=== PATIENT | female | born 1990 | race Two or more races ===

== ENCOUNTER 2016-08-04 16:04 | Inpatient (IN) | payer OTHER ==
[~2016-08-04] VITALS: Ht 170.2 cm; Wt 49.9 kg
[~2016-08-04 16:04] MED LIST: NKM
[2016-08-04 16:05] VITALS: BP 104/67
[2016-08-04 18:06] VITALS: BP 106/71
[2016-08-04 21:04] LABS: BASOPHILS % (AUTO) 2.1 % (0.0-2.0); LYMPHOCYTES % (AUTO) 47.1 % (20.0-45.0); MEAN CORPUSCULAR HEMOGLOBIN 30.7 PG (27.0-31.0); MEAN CORPUSCULAR HGB CONC 31.5 G/DL (32.0-36.0); MEAN CORPUSCULAR VOLUME 97 FL (80-99); MEAN PLATELET VOLUME 5.6 FL (6.5-10.1); MONOCYTES % (AUTO) 6.1 % (1.0-10.0); NEUTROPHILS % (AUTO) 44.7 % (45.0-75.0); PLATELET COUNT 365 K/UL (150-450); RED BLOOD COUNT 4.28 M/UL (4.20-5.40); RED CELL DISTRIBUTION WIDTH 15.3 % (11.6-14.8); WHITE BLOOD COUNT 6.8 K/UL (4.8-10.8)
[2016-08-04 21:34] LABS: ALANINE AMINOTRANSFERASE 48 U/L (3-33); ALBUMIN/GLOBULIN RATIO 1.8 (1.0-2.7); ANION GAP 27 (5-15); ASPARTATE AMINO TRANSFERASE 76 U/L (5-40); CALCIUM 8.2 mg/dL (8.6-10.2); CARBON DIOXIDE 16 mEQ/L (20-30); CHLORIDE 98 mEQ/L (98-107); CREATININE 0.7 mg/dL (0.5-0.9); GLOMERULAR FILTRATION RATE > 60 mL/min (>60); HEMOLYSIS 43; POTASSIUM 5.4 mEQ/L (3.4-4.9); SODIUM 141 mEQ/L (135-145)
[2016-08-04 22:01] VITALS: BP 112/71
--- NOTE | 2016-08-04 23:29 | History and Physical ---
History of Present Illness General Date patient seen: Aug 04, 2016 Reason for Hospitalization: Alcohol Intoxication Present Illness HPI 26 yo F w/ Hx ETOH abuse and dependence. Presented to ED w/ severe ETOH intoxication. Pt alert, however non cooperative w/ questioning. Found to have BAL level of 400, anion gap acidosis and elevated LFTs. Pt was recently discharged from [facility] detox facility in [place]. Allergies: Coded Allergies: NO ALLERGY INFORMATION AVAILABLE (Verified Allergy, Unknown, 05/15/16) Medication History Scheduled No Known Medications* (NKM - No Known Medications*), 0 ., (Reported) Patient History Limited by: other - intoxication, poorly cooperative Healthcare decision maker Resuscitation status Advanced Directive on File Review of Systems All Other Systems: negative except mentioned in HPI - unable to obtain due to level of intoxication Physical Exam Physical Exam Narrative General Appearance: Alert, CIWA (2), No Apparent Distress Neuro: Cranial Nerves 3-12 NL, Grossly Non-Focal, Motor and Sensory Intact, Normal Gait, Normal Speech, Normal Tone HEENT: Atraumatic, EOMI, PERRLA, Symmetrical Neck: Full Range of Motion, Supple, No: Enlarged Thyroid, JVD, Lymphadenopathy, Tenderness Cardiovascular: Normal S1, Normal S2, Regular Rate, Regular Rhythm, No: Gallops, Murmurs, Rubs Lungs: Clear Bilaterally, Normal Air Movement, Respiratory Effort (Non-Labored) , No: Rhonchi, Wheezing Abdomen: Bowel Sounds Present, Soft, No: Distended, Masses, Organomegaly, Tenderness Extremities: Capillary Refill Exam (< 3 seconds (WNL)), Normal Pulses, No: Clubbing, Cyanosis, Edema Skin: Dry, Intact, No: Cyanosis, Jaundiced, Rashes Lymph: No: Lymphadenopathy, Lymphedema Psych/Mental Status: Mental Status NL Last 24 Hour Vital Signs Date Time Temp Pulse Resp B/P Pulse Ox O2 Delivery O2 Flow Rate FiO2 08/04/16 22:01 97.2 86 20 112/71 100 Room Air 08/04/16 18:06 97.2 99 20 106/71 97 Room Air 08/04/16 16:05 98.1 83 20 104/67 97 Room Air 08/04/16 15:56 87 20 104/67 97 Room Air Laboratory Tests Test 08/04/16 20:50 White Blood Count 6.8 K/UL (4.8-10.8) Red Blood Count 4.28 M/UL (4.20-5.40) Hemoglobin 13.1 G/DL (12.0-16.0) Hematocrit 41.7 % (37.0-47.0) Mean Corpuscular Volume 97 FL (80-99) Mean Corpuscular Hemoglobin 30.7 PG (27.0-31.0) Mean Corpuscular Hemoglobin Concent 31.5 G/DL (32.0-36.0) L Red Cell Distribution Width 15.3 % (11.6-14.8) H Platelet Count 365 K/UL (150-450) Mean Platelet Volume 5.6 FL (6.5-10.1) L Neutrophils (%) (Auto) 44.7 % (45.0-75.0) L Lymphocytes (%) (Auto) 47.1 % (20.0-45.0) H Monocytes (%) (Auto) 6.1 % (1.0-10.0) Eosinophils (%) (Auto) 0.0 % (0.0-3.0) Basophils (%) (Auto) 2.1 % (0.0-2.0) H Sodium Level 141 mEQ/L (135-145) Potassium Level 5.4 mEQ/L (3.4-4.9) H Chloride Level 98 mEQ/L (98-107) Carbon Dioxide Level 16 mEQ/L (20-30) L Anion Gap 27 (5-15) H Blood Urea Nitrogen 13 mg/dL (7-23) Creatinine 0.7 mg/dL (0.5-0.9) Estimat Glomerular Filtration Rate > 60 mL/min (>60) Glucose Level 73 mg/dL (74-106) L Calcium Level 8.2 mg/dL (8.6-10.2) L Total Bilirubin 0.3 mg/dL (0.0-1.2) Aspartate Amino Transf (AST/SGOT) 76 U/L (5-40) H Alanine Aminotransferase (ALT/SGPT) 48 U/L (3-33) H Alkaline Phosphatase 77 U/L (35-104) Total Protein 7.0 g/dL (6.6-8.7) Albumin 4.5 g/dL (3.5-5.2) Globulin 2.5 g/dL Albumin/Globulin Ratio 1.8 (1.0-2.7) Serum Alcohol 428 mg/dL Height (Feet): 5 Height (Inches): 7.00 Weight (Pounds): 110 Assessment/Plan Status: stable Assessment/Plan # Alcohol use disorder/ alcohol dependence with acute intoxication (F10.229) # Alcoholic ketoacidosis # Alcoholic hepatitis # Hyperkalemia, due to alcoholic ketoacidosis - admit to in pt - close observation - thiamine 100mg IV - banana bag - IVF w/ D5 1/2 NS - CIWA protocol - seizure precautions - evaluation for detox/rehab time of note dose not reflect time of clinical encounter Markos Baker MD Aug 04, 2016 23:29
[2016-08-05 01:51] VITALS: BP 105/80
[2016-08-05] MEDS ORDERED: LORazepam 1mg tab ORAL PRN (02:45)
[2016-08-05] MEDS ORDERED: LORazepam Inj 2mg/ml 1ml IV PRN (02:45)
[2016-08-05] MEDS ORDERED: Thiamine HCl 100 MG, Folic Acid 1 MG, Magnesium Sulfate 2,000 MG, Multivitamin - 12 Inj... IV SCH ×10 (02:45→09:00)
[2016-08-05] MEDS: D5 1/2NS 1,000 ML IV SCH ×2 (06:44→14:00)
[2016-08-05 08:29] VITALS: BP 111/56
[2016-08-05 10:00] LABS: BASOPHILS % (AUTO) 1.4 % (0.0-2.0); EOSINOPHILS % (AUTO) 0.2 % (0.0-3.0); LYMPHOCYTES % (AUTO) 26.4 % (20.0-45.0); MEAN CORPUSCULAR HEMOGLOBIN 31.3 PG (27.0-31.0); MEAN CORPUSCULAR HGB CONC 33.7 G/DL (32.0-36.0); MEAN CORPUSCULAR VOLUME 93 FL (80-99); MEAN PLATELET VOLUME 5.9 FL (6.5-10.1); MONOCYTES % (AUTO) 12.9 % (1.0-10.0); NEUTROPHILS % (AUTO) 59.2 % (45.0-75.0); PLATELET COUNT 372 K/UL (150-450); RED CELL DISTRIBUTION WIDTH 14.6 % (11.6-14.8); WHITE BLOOD COUNT 9.5 K/UL (4.8-10.8)
[2016-08-05 10:40] LABS: ALANINE AMINOTRANSFERASE 42 U/L (3-33); ALBUMIN/GLOBULIN RATIO 1.7 (1.0-2.7); ANION GAP 15 (5-15); ASPARTATE AMINO TRANSFERASE 61 U/L (5-40); CALCIUM 8.7 mg/dL (8.6-10.2); CARBON DIOXIDE 26 mEQ/L (20-30); CHLORIDE 92 mEQ/L (98-107); CREATININE 0.6 mg/dL (0.5-0.9); GLOMERULAR FILTRATION RATE > 60 mL/min (>60); HEMOLYSIS 7; MAGNESIUM 1.4 mg/dL (1.7-2.5); SODIUM 133 mEQ/L (135-145); TOTAL PROTEIN 6.7 g/dL (6.6-8.7)
[2016-08-05] MEDS: Folic Acid 1 MG, Magnesium Sulfate 2,000 MG, Multivitamin - 12 Injection 10 ML in NS w/... IV SCH (11:13)
[2016-08-05] MEDS: THIAMINE IVPB SCH (11:29)
[2016-08-05] MEDS: D5W IVPB SCH (11:29)
[2016-08-05 12:28] VITALS: BP 118/81
[2016-08-05] MEDS ORDERED: D5 1/2NS 1,000 ML IV SCH (13:00)
[2016-08-05 13:54] VITALS: BP 110/62
[2016-08-05] MEDS: chlordiazePOXIDE 25mg Cap ORAL SCH ×2 (14:02→21:48)
[2016-08-05 16:14] VITALS: BP 113/73
[2016-08-05] MEDS ORDERED: D5 1/2NS 1000ml IV ONE (18:32)
--- NOTE | 2016-08-05 20:08 | General Progress Note ---
Assessment/Plan Problem List: (1) Metabolic acidemia ICD Codes: E87.2 - Acidosis SNOMED: 71421073 (2) Hypomagnesemia ICD Codes: E83.42 - Hypomagnesemia SNOMED: 573639832 (3) Alcoholic liver disease ICD Codes: K70.9 - Alcoholic liver disease, unspecified SNOMED: 60486789 (4) Alcohol withdrawal ICD Codes: F10.239 - Alcohol dependence with withdrawal, unspecified SNOMED: 969053852 (5) Alcohol abuse ICD Codes: F10.10 - Alcohol abuse, uncomplicated SNOMED: 75222753, 26071890 (6) Acute alcoholic intoxication ICD Codes: F10.129 - Alcohol abuse with intoxication, unspecified SNOMED: 35148419 (7) Altered mental status ICD Codes: R41.82 - Altered mental status, unspecified SNOMED: 834453955 (8) ETOH abuse ICD Codes: F10.10 - Alcohol abuse, uncomplicated SNOMED: 49476577, 01354461 Status: stable Assessment/Plan # Alcohol use disorder/ alcohol dependence with acute intoxication (F10.229) # Alcoholic ketoacidosis # Alcoholic hepatitis # Hyperkalemia, due to alcoholic ketoacidosis - admit to in pt - close observation - thiamine 100mg IV -MVI, folate - banana bag - IVF w/ D5 1/2 NS - CIWA protocol - seizure precautions - evaluation for detox/rehab start Librium -Zofran, Compazine prn n/v Subjective Date patient seen: Aug 05, 2016 Time patient seen: 20:07 Allergies: Coded Allergies: No Known Allergies (Unverified , 08/05/16) Per Patient NKA Subjective pt with n/v Objective Last 24 Hour Vital Signs Date Time Temp Pulse Resp B/P Pulse Ox O2 Delivery O2 Flow Rate FiO2 08/05/16 16:14 99.0 78 18 113/73 96 Room Air 08/05/16 13:54 98.1 84 18 110/62 95 Room Air 08/05/16 12:28 98.1 94 18 118/81 97 Room Air 08/05/16 08:29 98.2 109 18 111/56 97 Room Air 08/05/16 01:51 97.5 99 18 105/80 97 Room Air 08/05/16 01:00 78 16 128/78 100 Room Air 08/04/16 22:01 97.2 86 20 112/71 100 Room Air Intake and Output 08/04/16 08/05/16 19:00 07:00 Intake Total 375 ml Balance 375 ml Intake Oral 375 ml # Voids 1 1 Laboratory Tests 08/04/16 20:50: White Blood Count 6.8, Red Blood Count 4.28, Hemoglobin 13.1, Hematocrit 41.7, Mean Corpuscular Volume 97, Mean Corpuscular Hemoglobin 30.7, Mean Corpuscular Hemoglobin Concent 31.5L, Red Cell Distribution Width 15.3H, Platelet Count 365 , Mean Platelet Volume 5.6L, Neutrophils (%) (Auto) 44.7L, Lymphocytes (%) (Auto ) 47.1H, Monocytes (%) (Auto) 6.1, Eosinophils (%) (Auto) 0.0, Basophils (%) ( Auto) 2.1H, Sodium Level 141, Potassium Level 5.4H, Chloride Level 98, Carbon Dioxide Level 16L, Anion Gap 27H, Blood Urea Nitrogen 13, Creatinine 0.7, Estimat Glomerular Filtration Rate > 60, Glucose Level 73L, Calcium Level 8.2L, Total Bilirubin 0.3, Aspartate Amino Transf (AST/SGOT) 76H, Alanine Aminotransferase (ALT/SGPT) 48H, Alkaline Phosphatase 77, Total Protein 7.0, Albumin 4.5, Globulin 2.5, Albumin/Globulin Ratio 1.8, Serum Alcohol 428 08/05/16 09:40: White Blood Count 9.5, Red Blood Count 4.00L, Hemoglobin 12.5, Hematocrit 37.1, Mean Corpuscular Volume 93, Mean Corpuscular Hemoglobin 31.3H, Mean Corpuscular Hemoglobin Concent 33.7, Red Cell Distribution Width 14.6, Platelet Count 372, Mean Platelet Volume 5.9L, Neutrophils (%) (Auto) 59.2, Lymphocytes (%) (Auto) 26.4, Monocytes (%) (Auto) 12.9H, Eosinophils (%) (Auto) 0.2, Basophils (%) ( Auto) 1.4, Sodium Level 133L, Potassium Level 4.0, Chloride Level 92L, Carbon Dioxide Level 26, Anion Gap 15, Blood Urea Nitrogen 9, Creatinine 0.6, Estimat Glomerular Filtration Rate > 60, Glucose Level 125H, Calcium Level 8.7, Total Bilirubin 0.9, Aspartate Amino Transf (AST/SGOT) 61H, Alanine Aminotransferase ( ALT/SGPT) 42H, Alkaline Phosphatase 73, Total Protein 6.7, Albumin 4.3, Globulin 2.4, Albumin/Globulin Ratio 1.7, Magnesium Level 1.4L 08/05/16 14:10: Urine HCG, Qualitative Negative, Urine Opiates Screen Negative, Urine Barbiturates Screen Negative, Phencyclidine (PCP) Screen Negative, Urine Amphetamines Screen Negative, Urine Benzodiazepines Screen Negative, Urine Cocaine Screen Negative, Urine Marijuana (THC) Screen Negative Height (Feet): 5 Height (Inches): 7.00 Weight (Pounds): 110 Objective General Appearance: Alert, CIWA (2), No Apparent Distress Neuro: Cranial Nerves 3-12 NL, Grossly Non-Focal, Motor and Sensory Intact, Normal Gait, Normal Speech, Normal Tone HEENT: Atraumatic, EOMI, PERRLA, Symmetrical Neck: Full Range of Motion, Supple, No: Enlarged Thyroid, JVD, Lymphadenopathy, Tenderness Cardiovascular: Normal S1, Normal S2, Regular Rate, Regular Rhythm, No: Gallops, Murmurs, Rubs Lungs: Clear Bilaterally, Normal Air Movement, Respiratory Effort (Non-Labored) , No: Rhonchi, Wheezing Abdomen: Bowel Sounds Present, Soft, No: Distended, Masses, Organomegaly, Tenderness Extremities: Capillary Refill Exam (< 3 seconds (WNL)), Normal Pulses, No: Clubbing, Cyanosis, Edema Skin: Dry, Intact, No: Cyanosis, Jaundiced, Rashes Lymph: No: Lymphadenopathy, Lymphedema Psych/Mental Status: Mental Status NL Katiuska Coughlin M.D. Aug 05, 2016 20:08
[2016-08-05 20:41] VITALS: BP 128/86
[2016-08-05] MEDS ORDERED: TraZODone 50mg tab ORAL PRN (20:45)
[2016-08-05] MEDS: TraZODone 50mg tab ORAL SCH (21:45)
[2016-08-06] VITALS: BP 104/67
[2016-08-06 04:00] VITALS: BP 104/50
[2016-08-06] MEDS: chlordiazePOXIDE 25mg Cap ORAL SCH ×2 (05:42→18:02)
[2016-08-06] MEDS: D5W IVPB SCH ×2 (09:00→12:38)
[2016-08-06] MEDS: THIAMINE IVPB SCH ×2 (09:00→12:38)
[2016-08-06] MEDS: Folic Acid 1 MG, Magnesium Sulfate 2,000 MG, Multivitamin - 12 Injection 10 ML in NS w/... IV SCH ×2 (09:00→12:37)
[2016-08-06] MEDS: D5 1/2NS 1,000 ML IV SCH ×3 (10:00→20:46)
[2016-08-06 10:15] LABS: ALANINE AMINOTRANSFERASE 30 U/L (3-33); ALBUMIN/GLOBULIN RATIO 1.5 (1.0-2.7); ANION GAP 14 (5-15); ASPARTATE AMINO TRANSFERASE 42 U/L (5-40); CARBON DIOXIDE 23 mEQ/L (20-30); CHLORIDE 100 mEQ/L (98-107); CREATININE 0.6 mg/dL (0.5-0.9); GLOMERULAR FILTRATION RATE > 60 mL/min (>60); HEMOLYSIS 8; MAGNESIUM 2.1 mg/dL (1.7-2.5); POTASSIUM 3.5 mEQ/L (3.4-4.9); SODIUM 137 mEQ/L (135-145); TOTAL PROTEIN 5.8 g/dL (6.6-8.7)
[2016-08-06 12:00] VITALS: BP 97/66
--- NOTE | 2016-08-06 15:17 | Emergency Room Report ---
History of Present Illness General Chief Complaint: Alcohol Intoxication Source: Patient Present Illness HPI The patient is a 26-year-old female brought in by ambulance with twin sister for alcohol intoxication. The paramedics state that these patients are well- known for alcohol intoxication and they're usually seen at [facility]. The patient's are said to have gone through many rehabilitation facilities and continue to leave or fail out and return to drinking heavily. The patients are here with resolution expert who states the parents were out of the country continuously send them to these different facilities for treatment. The patient is unable to provide any information at this time Allergies: Coded Allergies: No Known Allergies (Unverified , 08/05/16) Per Patient NKA Patient History Past Medical History: see triage record Pertinent Family History: none Reviewed Nursing Documentation: PMH: Agreed, PSxH: Agreed Nursing Documentation-PMH Past Medical History: No History, Except For Hx Cardiac Problems: No Hx Hypertension: No Hx Pacemaker: No Hx Asthma: No Hx COPD: No Hx Diabetes: No Hx Cancer: No Hx Gastrointestinal Problems: Yes - ETOH ABUSE Hx Dialysis: No History Of Psychiatric Problem: Yes - ETOH ABUSE Hx Neurological Problems: No Hx Cerebrovascular Accident: No Hx Seizures: No Review of Systems All Other Systems: negative except mentioned in HPI Physical Exam Vital Signs Date Time Temp Pulse Resp B/P Pulse Ox O2 Delivery O2 Flow Rate FiO2 08/04/16 15:56 87 20 104/67 97 Room Air 08/04/16 16:05 98.1 Sp02 EP Interpretation: reviewed, normal General Appearance: no apparent distress, GCS 15, lethargic Head: normocephalic, atraumatic Eyes: bilateral eye PERRL, bilateral eye normal inspection ENT: hearing grossly normal, normal pharynx, no angioedema, normal voice Neck: full range of motion, supple/symm/no masses Respiratory: chest non-tender, lungs clear, normal breath sounds, no wheezing, speaking full sentences Cardiovascular #1: regular rate, rhythm, no edema Gastrointestinal: normal bowel sounds, non tender, soft, non-distended, no guarding, no rebound Genitourinary: normal inspection, no CVA tenderness Musculoskeletal: normal inspection, back normal, non-tender Neurologic: responsive, sensory intact Psychiatric: no suicidal/homicidal ideation Skin: normal color, no rash, warm/dry, well hydrated Medical Decision Making PA Attestation Dr. Bedoya is my supervising physician. Patient management was discussed with my supervising physician Diagnostic Impression: Primary Impression: Acute alcoholic intoxication ER Course The patient is a 26-year-old female brought in by ambulance with twin sister for alcohol intoxication. DDx considered but not limited to: acute alcohol intoxication, hepatic encephalopathy, drug overdose, hypoglycemia, psychosis PE: Vitals WNL. NAD. Sleeping. head NC/AT. PERRL. Awakens to verbal and physical stimuli. RRR. Lungs CTA bilat. Abd non tender. Foul smelling CBC unremarkable. CMP shows hyperkalemia and elevated AST/ALT Blood alcohol level is markedly elevated UDS neg Pt given IV fluids. The patient becomes more responsive and alert as time goes on. The patient is given time to rest in the emergency department. The patient will be admitted for severe alcohol intoxication in stable condition Laboratory Tests Test 08/04/16 20:50 08/05/16 09:40 08/05/16 14:10 08/06/16 09:45 White Blood Count 6.8 K/UL (4.8-10.8) 9.5 K/UL (4.8-10.8) Red Blood Count 4.28 M/UL (4.20-5.40) 4.00 M/UL (4.20-5.40) L Hemoglobin 13.1 G/DL (12.0-16.0) 12.5 G/DL (12.0-16.0) Hematocrit 41.7 % (37.0-47.0) 37.1 % (37.0-47.0) Mean Corpuscular Volume 97 FL (80-99) 93 FL (80-99) Mean Corpuscular Hemoglobin 30.7 PG (27.0-31.0) 31.3 PG (27.0-31.0) H Mean Corpuscular Hemoglobin Concent 31.5 G/DL (32.0-36.0) L 33.7 G/DL (32.0-36.0) Red Cell Distribution Width 15.3 % (11.6-14.8) H 14.6 % (11.6-14.8) Platelet Count 365 K/UL (150-450) 372 K/UL (150-450) Mean Platelet Volume 5.6 FL (6.5-10.1) L 5.9 FL (6.5-10.1) L Neutrophils (%) (Auto) 44.7 % (45.0-75.0) L 59.2 % (45.0-75.0) Lymphocytes (%) (Auto) 47.1 % (20.0-45.0) H 26.4 % (20.0-45.0) Monocytes (%) (Auto) 6.1 % (1.0-10.0) 12.9 % (1.0-10.0) H Eosinophils (%) (Auto) 0.0 % (0.0-3.0) 0.2 % (0.0-3.0) Basophils (%) (Auto) 2.1 % (0.0-2.0) H 1.4 % (0.0-2.0) Sodium Level 141 mEQ/L (135-145) 133 mEQ/L (135-145) L 137 mEQ/L (135-145) Potassium Level 5.4 mEQ/L (3.4-4.9) H 4.0 mEQ/L (3.4-4.9) 3.5 mEQ/L (3.4-4.9) Chloride Level 98 mEQ/L (98-107) 92 mEQ/L (98-107) L 100 mEQ/L (98-107) Carbon Dioxide Level 16 mEQ/L (20-30) L 26 mEQ/L (20-30) 23 mEQ/L (20-30) Anion Gap 27 (5-15) H 15 (5-15) 14 (5-15) Blood Urea Nitrogen 13 mg/dL (7-23) 9 mg/dL (7-23) 7 mg/dL (7-23) Creatinine 0.7 mg/dL (0.5-0.9) 0.6 mg/dL (0.5-0.9) 0.6 mg/dL (0.5-0.9) Estimate Glomerular Filtration Rate > 60 mL/min (>60) > 60 mL/min (>60) > 60 mL/min (>60) Glucose Level 73 mg/dL (74-106) L 125 mg/dL (74-106) H 121 mg/dL (74-106) H Calcium Level 8.2 mg/dL (8.6-10.2) L 8.7 mg/dL (8.6-10.2) 8.0 mg/dL (8.6-10.2) L Total Bilirubin 0.3 mg/dL (0.0-1.2) 0.9 mg/dL (0.0-1.2) 1.0 mg/dL (0.0-1.2) Aspartate Amino Transferase (AST) 76 U/L (5-40) H 61 U/L (5-40) H 42 U/L (5-40) H Alanine Aminotransferase (ALT) 48 U/L (3-33) H 42 U/L (3-33) H 30 U/L (3-33) Alkaline Phosphatase 77 U/L (35-104) 73 U/L (35-104) 61 U/L (35-104) Total Protein 7.0 g/dL (6.6-8.7) 6.7 g/dL (6.6-8.7) 5.8 g/dL (6.6-8.7) L Albumin 4.5 g/dL (3.5-5.2) 4.3 g/dL (3.5-5.2) 3.5 g/dL (3.5-5.2) Globulin 2.5 g/dL 2.4 g/dL 2.3 g/dL Albumin/Globulin Ratio 1.8 (1.0-2.7) 1.7 (1.0-2.7) 1.5 (1.0-2.7) Serum Alcohol 428 mg/dL Magnesium Level 1.4 mg/dL (1.7-2.5) L 2.1 mg/dL (1.7-2.5) Urine HCG, Qualitative Negative Urine Opiates Screen Negative (NEGATIVE) Urine Barbiturates Screen Negative (NEGATIVE) Phencyclidine (PCP) Screen Negative (NEGATIVE) Urine Amphetamines Screen Negative (NEGATIVE) Urine Benzodiazepines Screen Negative (NEGATIVE) Urine Cocaine Screen Negative (NEGATIVE) Urine Marijuana (THC) Screen Negative (NEGATIVE) Lab Results Impression CBC unremarkable. CMP shows hyperkalemia and elevated AST/ALT Blood alcohol level is markedly elevated UDS neg Last Vital Signs Date Time Temp Pulse Resp B/P Pulse Ox O2 Delivery O2 Flow Rate FiO2 08/06/16 12:00 98.2 57 20 97/66 97 Room Air Status: improved Disposition: ADMITTED INPATIENT Condition: Stable Referrals: NOT CHOSEN IPA/,REFERRING (PCP) FRANKLIN BEAN Aug 06, 2016 15:16
[2016-08-06 16:00] VITALS: BP 112/69
--- NOTE | 2016-08-06 17:58 | General Progress Note ---
Assessment/Plan Problem List: (1) Metabolic acidemia ICD Codes: E87.2 - Acidosis SNOMED: 22274938 (2) Hypomagnesemia ICD Codes: E83.42 - Hypomagnesemia SNOMED: 724682217 (3) Alcoholic liver disease ICD Codes: K70.9 - Alcoholic liver disease, unspecified SNOMED: 25823380 (4) Alcohol withdrawal ICD Codes: F10.239 - Alcohol dependence with withdrawal, unspecified SNOMED: 124097068 (5) Alcohol abuse ICD Codes: F10.10 - Alcohol abuse, uncomplicated SNOMED: 65856383, 31690260 (6) Acute alcoholic intoxication ICD Codes: F10.129 - Alcohol abuse with intoxication, unspecified SNOMED: 21380954 (7) Altered mental status ICD Codes: R41.82 - Altered mental status, unspecified SNOMED: 439661464 (8) ETOH abuse ICD Codes: F10.10 - Alcohol abuse, uncomplicated SNOMED: 61812059, 63370435 Assessment/Plan # Alcohol use disorder/ alcohol dependence with acute intoxication (F10.229) # Alcoholic ketoacidosis # Alcoholic hepatitis # Hyperkalemia, due to alcoholic ketoacidosis - admit to in pt - close observation - thiamine 100mg IV -->po -MVI, folate po - banana bag - IVF w/ D5 1/2 NS - CIWA protocol - seizure precautions - evaluation for detox/rehab start Librium, taper -Zofran, Compazine prn n/v Subjective Date patient seen: Aug 06, 2016 Time patient seen: 17:55 Allergies: Coded Allergies: No Known Allergies (Unverified , 08/05/16) Per Patient NKA Subjective no more n/v; tolerating diet Objective Last 24 Hour Vital Signs Date Time Temp Pulse Resp B/P Pulse Ox O2 Delivery O2 Flow Rate FiO2 08/06/16 16:00 96.4 89 15 112/69 98 Room Air 08/06/16 12:00 98.2 57 20 97/66 97 Room Air 08/06/16 04:00 97.5 62 16 104/50 97 Room Air 08/06/16 00:00 97.9 70 16 104/67 94 Room Air 08/05/16 20:41 98.2 72 19 128/86 97 Room Air Intake and Output 08/05/16 08/06/16 19:00 07:00 Intake Total 971 ml 760 ml Balance 971 ml 760 ml Intake Oral 120 ml 360 ml IV Total 851 ml 400 ml # Voids 2 Laboratory Tests 08/06/16 09:45: Sodium Level 137, Potassium Level 3.5, Chloride Level 100, Carbon Dioxide Level 23, Anion Gap 14, Blood Urea Nitrogen 7, Creatinine 0.6, Estimat Glomerular Filtration Rate > 60, Glucose Level 121H, Calcium Level 8.0L, Magnesium Level 2.1, Total Bilirubin 1.0, Aspartate Amino Transf (AST/SGOT) 42H, Alanine Aminotransferase (ALT/SGPT) 30, Alkaline Phosphatase 61, Total Protein 5.8L, Albumin 3.5, Globulin 2.3, Albumin/Globulin Ratio 1.5 Height (Feet): 5 Height (Inches): 7.00 Weight (Pounds): 110 Objective General Appearance: Alert, sleepy but arousable, No Apparent Distress Neuro: Cranial Nerves 3-12 NL, Grossly Non-Focal, Motor and Sensory Intact, Normal Gait, Normal Speech, Normal Tone; no tongue fasciculations or tremor or flapping asterixis HEENT: Atraumatic, EOMI, PERRLA, Symmetrical Neck: Full Range of Motion, Supple, No: Enlarged Thyroid, JVD, Lymphadenopathy, Tenderness Cardiovascular: Normal S1, Normal S2, Regular Rate, Regular Rhythm, No: Gallops, Murmurs, Rubs Lungs: Clear Bilaterally, Normal Air Movement, Respiratory Effort (Non-Labored) , No: Rhonchi, Wheezing Abdomen: Bowel Sounds Present, Soft, No: Distended, Masses, Organomegaly, Tenderness Extremities: Capillary Refill Exam (< 3 seconds (WNL)), Normal Pulses, No: Clubbing, Cyanosis, Edema Skin: Dry, Intact, No: Cyanosis, Jaundiced, Rashes Lymph: No: Lymphadenopathy, Lymphedema Psych/Mental Status: Mental Status NL Katiuska Coughlin M.D. Aug 06, 2016 17:58
[2016-08-06 20:00] VITALS: BP 116/69
[2016-08-06] MEDS: TraZODone 50mg tab ORAL SCH (20:43)
[2016-08-07] VITALS: BP 112/74
[2016-08-07 04:00] VITALS: BP 101/60
[2016-08-07] MEDS: D5 1/2NS 1,000 ML IV SCH (04:58)
[2016-08-07 08:00] VITALS: BP 117/71
[2016-08-07] MEDS: chlordiazePOXIDE 25mg Cap ORAL SCH (08:36)
[2016-08-07] MEDS ORDERED: MULTIVITAMINS1 EAC2 ORAL (11:25)
[2016-08-07] MEDS ORDERED: VITAMIN B-1100 MG ORAL (11:26)
[2016-08-07] MEDS ORDERED: FOLIC ACID1 MG ORAL (11:26)
[2016-08-07] MEDS ORDERED: LIBRIUM10 MG ORAL (11:26)
[2016-08-07] MEDS: Folic Acid 1 MG, Magnesium Sulfate 2,000 MG, Multivitamin - 12 Injection 10 ML in NS w/... IV SCH (11:40)
[2016-08-07] MEDS: D5W IVPB SCH (11:41)
[2016-08-07] MEDS: THIAMINE IVPB SCH (11:41)
--- NOTE | 2016-08-07 15:37 | Discharge Summary ---
Discharge Summary Hospital Course Date of Admission Aug 04, 2016 at 19:23 Date of Discharge 08/07/16 Admitting Diagnosis AMS, etoh intoxication HPI Mari Herrera is a 26 year old female who was admitted on Aug 04, 2016 at 19:23 for Altered Mental Status,Etoh intoxication Hospital Course - admitted to in pt for close observation - thiamine 100mg IV-->po -folate, MVI po - banana bag - IVF w/ D5 1/2 NS - CIWA protocol -started Librium taper - seizure precautions - chem, mag, LFT's - pt not interested in detox/rehab -counseled pt extensively on alcohol abstinence Discharge Medications Continued Medications: Chlordiazepoxide Hcl* (Librium*) 10 Mg Capsule 25 MG ORAL DAILY, #5 CAP 0 Refills Folic Acid* (Folic Acid*) 1 Mg Tablet 1 MG ORAL DAILY, #30 TAB Multivitamins* (Multivitamins*) 1 Each Tablet 1 TAB ORAL DAILY, #30 TAB 0 Refills No Known Medications* (NKM - No Known Medications*) . 0 ., 0 Refills Discharge Condition Upon Discharge: stable Discharge Disposition Patient was discharged to Home (01) Discharge Diagnoses: (1) Hypomagnesemia (2) Alcohol abuse (3) Alcoholic liver disease (4) Altered mental status (5) Alcohol withdrawal (6) ETOH abuse (7) Acute alcoholic intoxication (8) Metabolic acidemia Katiuska Coughlin M.D. Aug 07, 2016 15:37
== END 2016-08-07 14:08 | disposition home or self-care (01) | DRG 897 ==
LOC: EDBD 16:04 → EMR 17:37 → 4W 19:23 → EDBEDREQ 22:46 → 4W 08-05 01:00 → 3E 08-05 13:10
PROC: HZ2ZZZZ Detoxification Services for Substance Abuse Treatment (ICD-10-PCS; principal; 2016-08-05)
DX: F10.239 Alcohol dependence with withdrawal, unspecified (principal); E87.2 Acidosis; K70.10 Alcoholic hepatitis without ascites; E83.42 Hypomagnesemia; K70.9 Alcoholic liver disease, unspecified; E87.5 Hyperkalemia; F10.229 Alcohol dependence with intoxication, unspecified; Y90.8 Blood alcohol level of 240 mg/100 ml or more
CPT/HCPCS: 36415; 80053; 80300; 80329; 81025; 83735; 85025; J2405

== ENCOUNTER 2017-08-16 18:17 | Inpatient (IN) | payer OTHER ==
[~2017-08-16] VITALS: Ht 167.6 cm; Wt 49.9 kg
[~2017-08-16 18:17] MED LIST changes: +FOLIC ACID1 MG ORAL; +LIBRIUM10 MG ORAL; +MULTIVITAMINS1 EAC2 ORAL; +VITAMIN B-1100 MG ORAL
--- NOTE | 2017-08-16 19:30 | Emergency Room Report ---
History of Present Illness General Chief Complaint: Altered Level of Consciousness Source: EMS Present Illness HPI Patient present by paramedics She is here with twin sister Was also found Next 2 The patient Patient was on the side of the bed on the floor of a hotel room Patient was apparently supposed to be leaving at noon However is staff was not able to get a hold of her they went and found the patient next her sister laying on the ground paramedics report appear bottles around the room no other medications no other drug paraphernalia Patient at this time is nonverbal and is unresponsive to verbal stimuli However does respond minimally to physical stimuli Allergies: Coded Allergies: No Known Allergies (Unverified , 08/05/16) Per Patient NKA Patient History Limited by: medical condition Past Medical History: see triage record Pertinent Family History: unable to obtain Last Menstrual Period: UNK Reviewed Nursing Documentation: PMH: Agreed, PSxH: Agreed Nursing Documentation-PMH Past Medical History: Deferred Hx Cardiac Problems: No Hx Hypertension: No Hx Pacemaker: No Hx Asthma: No Hx COPD: No Hx Diabetes: No Hx Cancer: No Hx Gastrointestinal Problems: Yes - ETOH ABUSE Hx Dialysis: No Hx Neurological Problems: No Hx Cerebrovascular Accident: No Hx Seizures: No Review of Systems All Other Systems: limited - Other than the ones mentioned in the history of present illness all others are reviewed however they do stay limited due to the patient's mental status Physical Exam Vital Signs Date Time Temp Pulse Resp B/P (MAP) Pulse Ox O2 Delivery O2 Flow Rate FiO2 08/16/17 18:26 97.0 120 12 113/67 95 Non-Rebreather 15.0 Sp02 EP Interpretation: reviewed, normal General Appearance: no apparent distress Head: normocephalic, atraumatic Eyes: bilateral eye PERRL ENT: normal pharynx - With vomitus around her mouth Neck: supple Respiratory: lungs clear Cardiovascular #1: regular rate, rhythm, no edema Gastrointestinal: non tender, soft Musculoskeletal: other - Patient does not follow commands no obvious focal deficit Neurologic: responsive - to physical stimuli Psychiatric: other - nonverbal Skin: normal color, no rash Lymphatic: no adenopathy Medical Decision Making Diagnostic Impression: Primary Impression: Altered level of consciousness Additional Impression: Acute alcoholic intoxication ER Course Multiple differentials considered Including but not limited to intracranial, metabolic, infectious Patient's alcohol level is significantly elevated Patient remains altered and confused Given the requirement for prolonged observation in the ER patient will be admitted to the hospital for further inpatient care Please note that a stamping press operator did present later on Provide significant input of the patient's have significant alcohol disease have had over 40 hospital admissions Reports that recently they had gone to [place] and again began drinking heavily Labs Test 08/16/17 19:23 08/16/17 20:10 Urine HCG, Qualitative Negative Urine Opiates Screen Negative (NEGATIVE) Urine Barbiturates Screen Negative (NEGATIVE) Phencyclidine (PCP) Screen Negative (NEGATIVE) Urine Amphetamines Screen Negative (NEGATIVE) Urine Benzodiazepines Screen Negative (NEGATIVE) Urine Cocaine Screen Negative (NEGATIVE) Urine Marijuana (THC) Screen Negative (NEGATIVE) White Blood Count 9.5 K/UL (4.8-10.8) Red Blood Count 4.94 M/UL (4.20-5.40) Hemoglobin 14.5 G/DL (12.0-16.0) Hematocrit 45.6 % (37.0-47.0) Mean Corpuscular Volume 92 FL (80-99) Mean Corpuscular Hemoglobin 29.5 PG (27.0-31.0) Mean Corpuscular Hemoglobin Concent 31.9 G/DL (32.0-36.0) Red Cell Distribution Width 14.5 % (11.6-14.8) Platelet Count 362 K/UL (150-450) Mean Platelet Volume 6.1 FL (6.5-10.1) Neutrophils (%) (Auto) 58.1 % (45.0-75.0) Lymphocytes (%) (Auto) 36.2 % (20.0-45.0) Monocytes (%) (Auto) 4.4 % (1.0-10.0) Eosinophils (%) (Auto) 0.4 % (0.0-3.0) Basophils (%) (Auto) 0.9 % (0.0-2.0) Sodium Level 144 MMOL/L (136-145) Potassium Level 4.7 MMOL/L (3.5-5.1) Chloride Level 108 MMOL/L (98-107) Carbon Dioxide Level 26 MMOL/L (21-32) Anion Gap 10 mmol/L (5-15) Blood Urea Nitrogen 10 mg/dL (7-18) Creatinine 0.7 MG/DL (0.55-1.30) Estimat Glomerular Filtration Rate > 60 mL/min (>60) Glucose Level 88 MG/DL (74-106) Calcium Level 8.0 MG/DL (8.5-10.1) Total Bilirubin 0.1 MG/DL (0.2-1.0) Aspartate Amino Transf (AST/SGOT) 27 U/L (15-37) Alanine Aminotransferase (ALT/SGPT) 15 U/L (12-78) Alkaline Phosphatase 67 U/L (46-116) Total Protein 7.6 G/DL (6.4-8.2) Albumin 3.4 G/DL (3.4-5.0) Globulin 4.2 g/dL Albumin/Globulin Ratio 0.8 (1.0-2.7) Salicylates Level 1.2 ug/mL (2.8-20) Acetaminophen Level < 2 MCG/ML (10-30) Serum Alcohol 453 mg/dL Last Vital Signs Date Time Temp Pulse Resp B/P (MAP) Pulse Ox O2 Delivery O2 Flow Rate FiO2 08/16/17 18:26 97.0 120 12 113/67 95 Non-Rebreather 15.0 Status: improved Disposition: ADMITTED INPATIENT Condition: Serious ANGELO KEY D.O. Aug 16, 2017 19:30
[2017-08-16 20:42] LABS: BASOPHILS % (AUTO) 0.9 % (0.0-2.0); EOSINOPHILS % (AUTO) 0.4 % (0.0-3.0); HEMATOCRIT 45.6 % (37.0-47.0); HEMOGLOBIN 14.5 G/DL (12.0-16.0); LYMPHOCYTES % (AUTO) 36.2 % (20.0-45.0); MEAN CORPUSCULAR VOLUME 92 FL (80-99); MONOCYTES % (AUTO) 4.4 % (1.0-10.0); NEUTROPHILS % (AUTO) 58.1 % (45.0-75.0); PLATELET COUNT 362 K/UL (150-450); RED BLOOD COUNT 4.94 M/UL (4.20-5.40); RED CELL DISTRIBUTION WIDTH 14.5 % (11.6-14.8); WHITE BLOOD COUNT 9.5 K/UL (4.8-10.8)
[2017-08-16 20:48] LABS: ANION GAP 10 mmol/L (5-15); BLOOD UREA NITROGEN 10 mg/dL (7-18); CARBON DIOXIDE 26 MMOL/L (21-32); CHLORIDE 108 MMOL/L (98-107); CREATININE 0.7 MG/DL (0.55-1.30); POTASSIUM 4.7 MMOL/L (3.5-5.1); SODIUM 144 MMOL/L (136-145)
[2017-08-16 20:59] LABS: ALANINE AMINOTRANSFERASE 15 U/L (12-78); ALBUMIN 3.4 G/DL (3.4-5.0); ALBUMIN/GLOBULIN RATIO 0.8 (1.0-2.7); ALKALINE PHOSPHATASE 67 U/L (46-116); ASPARTATE AMINO TRANSFERASE 27 U/L (15-37); BILIRUBIN,TOTAL 0.1 MG/DL (0.2-1.0)
[2017-08-16 21:37] VITALS: BP 102/68
[2017-08-16] MEDS ORDERED: UNOBMED (23:42)
[2017-08-17 00:46] VITALS: BP 97/57
[2017-08-17] MEDS: D5 1/2NS 1,000 ML IV SCH ×3 (01:43→18:39)
[2017-08-17 04:41] VITALS: BP 104/76
[2017-08-17] MEDS ORDERED: Thiamine HCl 100 MG, Folic Acid 1 MG, Magnesium Sulfate 2,000 MG, Multivitamin - 12 Inj... IV SCH ×5 (07:00)
[2017-08-17 08:00] VITALS: BP 117/77
[2017-08-17] MEDS: LORazepam 1mg tab ORAL PRN ×2 (08:16→23:42)
--- NOTE | 2017-08-17 09:47 | History and Physical ---
History of Present Illness General Date patient seen: Aug 17, 2017 Time patient seen: 09:47 Reason for Hospitalization: Altered Level of Consciousness Present Illness HPI 27y/o female with pmh of alcohol abuse with dependence who presented with acute alcohol intoxication. Pt was found w/ twin sister on the floor of the hotel room. Pt was found next to her sister on the grond. Paramedics reported alcohol bottles around the room. No drugs found. On arrival to ED, pt is nonverbal and unresponsive to verbal stimuli. She did respond minimally to physical stimuli. Allergies: Coded Allergies: No Known Allergies (Unverified , 08/05/16) Per Patient NKA Medication History Scheduled Chlordiazepoxide Hcl* (Librium*), 25 MG ORAL DAILY, (Reported) Folic Acid* (Folic Acid*), 1 MG ORAL DAILY, (Reported) Multivitamins* (Multivitamins*), 1 TAB ORAL DAILY, (Reported) No Known Medications* (NKM - No Known Medications*), 0 ., (Reported) Thiamine Hcl* (Vitamin B-1*), 100 MG ORAL DAILY, (Reported) Miscellaneous Medications Unable to Obtain Medications (Unable To Obtain Meds), (Reported) Patient History History Provided By: Patient, Family Member, Medical Record Healthcare decision maker Katelyn Herrera( mother) Resuscitation status Full Code Advanced Directive on File Past Medical/Surgical History Past Medical/Surgical History: (1) Alcohol use disorder (2) Alcohol dependence Family History Family History: Patient reports no known family medical history. Social History Social History: (1) Alcohol abuse Review of Systems ROS Narrative Limited as pt with acute alcohol intoxication Physical Exam Physical Exam Narrative General: somnolent, arousable briefly to voice Head: normocephalic, without obvious abnormality, atraumatic Eyes: conjunctivae/corneas clear. PERRL, EOM's intact Throat: lips, mucosa, and tongue normal. MMM Neck: supple, symmetrical, trachea midline, and no JVD Lungs: clear to auscultation bilaterally Heart: regular rate and rhythm, S1, S2 normal, no murmur, click, rub or gallop Abdomen: soft, non-tender, non-distended, bowel sounds normal; no masses or organomegaly Extremities: extremities normal, atraumatic, no cyanosis or edema Pulses: 2+ and symmetric Skin: skin color, texture, turgor normal; no rashes or lesions Neurologic: grossly normal, no focal deficits Last 24 Hour Vital Signs Date Time Temp Pulse Resp B/P (MAP) Pulse Ox O2 Delivery O2 Flow Rate FiO2 08/17/17 08:00 98.0 94 20 117/77 99 Room Air 08/17/17 04:41 97.8 100 18 104/76 100 08/17/17 01:11 98.6 104 16 97/57 97 Room Air 15.0 08/17/17 00:46 98.6 104 16 97/57 97 Room Air 08/16/17 21:37 98.6 89 12 102/68 97 Non-Rebreather 15.0 08/16/17 18:26 97.0 120 12 113/67 95 Non-Rebreather 15.0 Intake and Output 08/16/17 08/17/17 19:00 07:00 Intake Total 720 ml Balance 720 ml Intake Oral 720 ml # Voids 1 Laboratory Tests Test 08/16/17 19:23 08/16/17 20:10 Urine HCG, Qualitative Negative Urine Opiates Screen Negative (NEGATIVE) Urine Barbiturates Screen Negative (NEGATIVE) Phencyclidine (PCP) Screen Negative (NEGATIVE) Urine Amphetamines Screen Negative (NEGATIVE) Urine Benzodiazepines Screen Negative (NEGATIVE) Urine Cocaine Screen Negative (NEGATIVE) Urine Marijuana (THC) Screen Negative (NEGATIVE) White Blood Count 9.5 K/UL (4.8-10.8) Red Blood Count 4.94 M/UL (4.20-5.40) Hemoglobin 14.5 G/DL (12.0-16.0) Hematocrit 45.6 % (37.0-47.0) Mean Corpuscular Volume 92 FL (80-99) Mean Corpuscular Hemoglobin 29.5 PG (27.0-31.0) Mean Corpuscular Hemoglobin Concent 31.9 G/DL (32.0-36.0) L Red Cell Distribution Width 14.5 % (11.6-14.8) Platelet Count 362 K/UL (150-450) Mean Platelet Volume 6.1 FL (6.5-10.1) L Neutrophils (%) (Auto) 58.1 % (45.0-75.0) Lymphocytes (%) (Auto) 36.2 % (20.0-45.0) Monocytes (%) (Auto) 4.4 % (1.0-10.0) Eosinophils (%) (Auto) 0.4 % (0.0-3.0) Basophils (%) (Auto) 0.9 % (0.0-2.0) Sodium Level 144 MMOL/L (136-145) Potassium Level 4.7 MMOL/L (3.5-5.1) Chloride Level 108 MMOL/L (98-107) H Carbon Dioxide Level 26 MMOL/L (21-32) Anion Gap 10 mmol/L (5-15) Blood Urea Nitrogen 10 mg/dL (7-18) Creatinine 0.7 MG/DL (0.55-1.30) Estimat Glomerular Filtration Rate > 60 mL/min (>60) Glucose Level 88 MG/DL (74-106) Calcium Level 8.0 MG/DL (8.5-10.1) L Total Bilirubin 0.1 MG/DL (0.2-1.0) L Aspartate Amino Transf (AST/SGOT) 27 U/L (15-37) Alanine Aminotransferase (ALT/SGPT) 15 U/L (12-78) Alkaline Phosphatase 67 U/L (46-116) Total Protein 7.6 G/DL (6.4-8.2) Albumin 3.4 G/DL (3.4-5.0) Globulin 4.2 g/dL Albumin/Globulin Ratio 0.8 (1.0-2.7) L Salicylates Level 1.2 ug/mL (2.8-20) L Acetaminophen Level < 2 MCG/ML (10-30) L Serum Alcohol 453 mg/dL Height (Feet): 5 Height (Inches): 6.00 Weight (Pounds): 110 Medications Current Medications Medications (Trade) Dose Ordered Sig/Sp Route PRN Reason Start Time Stop Time Status Last Admin Dose Admin Dextrose (Dextrose 50%) STAT PRN IV Hypoglycemia 08/17/17 01:00 09/16/17 00:59 Dextrose/Sodium Chloride 1,000 ml @ 125 mls/hr Q8H IV 08/17/17 01:56 09/16/17 01:55 08/17/17 01:43 Folic Acid 1 mg/ Magnesium Sulfate 2000 mg/ Multivitamins 10 ml/Sodium Chloride 1,014.2 ml @ 125 mls/ hr Q24H IV 08/17/17 10:00 09/16/17 09:59 Lorazepam (Ativan) 1 mg Q2H PRN ORAL For Anxiety 08/17/17 01:00 08/24/17 00:59 08/17/17 08:16 Thiamine HCl 100 mg/Dextrose 56 ml @ 112 mls/hr Q24H IVPB 08/17/17 10:00 09/16/17 09:59 Assessment/Plan Problem List: (1) Acute alcoholic intoxication ICD Codes: F10.129 - Alcohol abuse with intoxication, unspecified SNOMED: 34910211 (2) Acute encephalopathy ICD Codes: G93.40 - Encephalopathy, unspecified SNOMED: 0362260 (3) Alcohol withdrawal ICD Codes: F10.239 - Alcohol dependence with withdrawal, unspecified SNOMED: 890644541 (4) Altered level of consciousness ICD Codes: R40.4 - Transient alteration of awareness SNOMED: 0861104 (5) Alcohol use disorder ICD Codes: F10.99 - Alcohol use, unspecified with unspecified alcohol-induced disorder SNOMED: 170184, 04778641 (6) Alcohol dependence ICD Codes: F10.20 - Alcohol dependence, uncomplicated SNOMED: 16220269 Status: unchanged Assessment/Plan - Admit inpt - Monitor respiratory status closely - Monitor for withdrawal - Zofran PRN n/v - Banana bag q24h - mIVFs - CIWA protocol - Seizure precautions - SW consult for evaluation for detox/rehab DVT ppx: SCDs FULL CODE 70min spent on this case w/ >50% on care/coordination. D/w pt/family, RN, SW/CM regarding mgmt and dispo. John Seaman M.D. Aug 17, 2017 09:47
[2017-08-17] MEDS: Folic Acid 1 MG, Magnesium Sulfate 2,000 MG, Multivitamin - 12 Injection 10 ML in NS w/... IV SCH (09:51)
[2017-08-17] MEDS: Thiamine 100mg IVPB (Q24H) IVPB SCH ×2 (09:51)
[2017-08-17 12:41] VITALS: BP 127/78
[2017-08-17 16:00] VITALS: BP 119/81
[2017-08-17 20:00] VITALS: BP 117/50
[2017-08-18] VITALS: BP 126/72
[2017-08-18] MEDS: D5 1/2NS 1,000 ML IV SCH ×2 (02:00→09:56)
[2017-08-18 04:00] VITALS: BP 98/61
[2017-08-18 07:03] LABS: EOSINOPHILS % (AUTO) 2.3 % (0.0-3.0); HEMATOCRIT 36.5 % (37.0-47.0); HEMOGLOBIN 11.8 G/DL (12.0-16.0); LYMPHOCYTES % (AUTO) 29.7 % (20.0-45.0); MEAN CORPUSCULAR VOLUME 91 FL (80-99); MONOCYTES % (AUTO) 11.6 % (1.0-10.0); NEUTROPHILS % (AUTO) 55.4 % (45.0-75.0); PLATELET COUNT 300 K/UL (150-450); RED BLOOD COUNT 4.02 M/UL (4.20-5.40); RED CELL DISTRIBUTION WIDTH 13.8 % (11.6-14.8); WHITE BLOOD COUNT 7.3 K/UL (4.8-10.8)
[2017-08-18 07:28] LABS: ANION GAP 9 mmol/L (5-15); BLOOD UREA NITROGEN 13 mg/dL (7-18); CALCIUM 7.8 MG/DL (8.5-10.1); CARBON DIOXIDE 22 MMOL/L (21-32); CHLORIDE 105 MMOL/L (98-107); CREATININE 0.6 MG/DL (0.55-1.30); PHOSPHORUS 3.2 MG/DL (2.5-4.9); POTASSIUM 4.1 MMOL/L (3.5-5.1); SODIUM 136 MMOL/L (136-145)
[2017-08-18] MEDS: Folic Acid 1 MG, Magnesium Sulfate 2,000 MG, Multivitamin - 12 Injection 10 ML in NS w/... IV SCH (08:59)
[2017-08-18] MEDS: Thiamine 100mg IVPB (Q24H) IVPB SCH ×2 (10:14)
[2017-08-18] MEDS: LORazepam 1mg tab ORAL PRN (10:17)
--- NOTE | 2017-08-18 11:05 | General Progress Note ---
Assessment/Plan Problem List: (1) Acute alcoholic intoxication ICD Codes: F10.129 - Alcohol abuse with intoxication, unspecified SNOMED: 83168181 (2) Acute encephalopathy ICD Codes: G93.40 - Encephalopathy, unspecified SNOMED: 1519615 (3) Alcohol withdrawal ICD Codes: F10.239 - Alcohol dependence with withdrawal, unspecified SNOMED: 058916670 (4) Altered level of consciousness ICD Codes: R40.4 - Transient alteration of awareness SNOMED: 5542645 (5) Alcohol use disorder ICD Codes: F10.99 - Alcohol use, unspecified with unspecified alcohol-induced disorder SNOMED: 038753, 22081964 (6) Alcohol dependence ICD Codes: F10.20 - Alcohol dependence, uncomplicated SNOMED: 83094221 Status: stable Assessment/Plan - Monitor respiratory status closely - Monitor for withdrawal - Zofran PRN n/v - Banana bag q24h - mIVFs, rate decreased as pt now tolerating PO intake - CIWA protocol - Seizure precautions - SW consult for evaluation for detox/rehab. LIkely d/c tomorrow with pt's friend João who will take pt to sober living facility DVT ppx: SCDs FULL CODE A total of 32min of extra time was spent on this case in addition to normal encounter time for care/coordination and counseling. D/w pt/family, RN, SW/CM regarding mgmt and dispo./w/ SW and pt extensively regarding dispo to sober living facility Subjective Date patient seen: Aug 18, 2017 Time patient seen: 11:00 ROS Limited/Unobtainable: No Constitutional: Reports: malaise, weakness HEENT: Reports: no symptoms Cardiovascular: Reports: no symptoms Respiratory: Reports: no symptoms Gastrointestinal/Abdominal: Reports: abdominal pain, nausea Genitourinary: Reports: no symptoms Neurologic/Psychiatric: Reports: headache Endocrine: Reports: no symptoms Hematologic/Lymphatic: Reports: no symptoms Allergies: Coded Allergies: No Known Allergies (Unverified , 08/05/16) Per Patient NKA Subjective No acute o/n events More awake, alert. C/o headache, nausea, abd pain. Tolerating some PO intake SW working on d/c plan with pt's friend João who is locating a sober living facility. Objective Last 24 Hour Vital Signs Date Time Temp Pulse Resp B/P (MAP) Pulse Ox O2 Delivery O2 Flow Rate FiO2 08/18/17 04:00 97.7 66 16 98/61 97 Room Air 08/18/17 00:00 97.9 82 18 126/72 99 Room Air 08/17/17 20:00 99.4 79 18 117/50 100 Room Air 08/17/17 16:00 98.0 89 20 119/81 99 Room Air 08/17/17 12:41 98.3 76 20 127/78 99 Room Air Intake and Output 08/17/17 08/18/17 19:00 07:00 Intake Total 960 ml 985 ml Balance 960 ml 985 ml Intake Oral 960 ml 360 ml IV Total 625 ml # Voids 3 1 Laboratory Tests 08/18/17 05:30: White Blood Count 7.3, Red Blood Count 4.02L, Hemoglobin 11.8L, Hematocrit 36.5L , Mean Corpuscular Volume 91, Mean Corpuscular Hemoglobin 29.3, Mean Corpuscular Hemoglobin Concent 32.4, Red Cell Distribution Width 13.8, Platelet Count 300, Mean Platelet Volume 6.1L, Neutrophils (%) (Auto) 55.4, Lymphocytes ( %) (Auto) 29.7, Monocytes (%) (Auto) 11.6H, Eosinophils (%) (Auto) 2.3, Basophils (%) (Auto) 1.0, Sodium Level 136, Potassium Level 4.1, Chloride Level 105, Carbon Dioxide Level 22, Anion Gap 9, Blood Urea Nitrogen 13, Creatinine 0.6, Estimat Glomerular Filtration Rate > 60, Glucose Level 95, Calcium Level 7.8L, Phosphorus Level 3.2, Magnesium Level 1.6L Height (Feet): 5 Height (Inches): 6.00 Weight (Pounds): 110 Objective General: alert, cooperative, no distress, appears stated age Head: normocephalic, without obvious abnormality, atraumatic Eyes: conjunctivae/corneas clear. PERRL, EOM's intact Throat: lips, mucosa, and tongue normal. MMM Neck: supple, symmetrical, trachea midline, and no JVD Lungs: clear to auscultation bilaterally Heart: regular rate and rhythm, S1, S2 normal, no murmur, click, rub or gallop Abdomen: soft, non-tender, non-distended, bowel sounds normal; no masses or organomegaly Extremities: extremities normal, atraumatic, no cyanosis or edema Pulses: 2+ and symmetric Skin: skin color, texture, turgor normal; no rashes or lesions Neurologic: grossly normal, no focal deficits John Seaman M.D. Aug 18, 2017 11:05
[2017-08-18 11:32] VITALS: BP 105/68
[2017-08-18 17:12] VITALS: BP 109/68
[2017-08-18 20:10] VITALS: BP 119/74
[2017-08-19 00:44] VITALS: BP 114/68
[2017-08-19 08:00] VITALS: BP 106/67
[2017-08-19] MEDS: Thiamine 100mg IVPB (Q24H) IVPB SCH ×2 (09:28)
[2017-08-19] MEDS: Folic Acid 1 MG, Magnesium Sulfate 2,000 MG, Multivitamin - 12 Injection 10 ML in NS w/... IV SCH (09:28)
[2017-08-19 12:00] VITALS: BP 108/69
[2017-08-19] MEDS ORDERED: LORAZEPAM1 MG ORAL (14:49)
[2017-08-19 16:00] VITALS: BP 100/74
[2017-08-19] MEDS ORDERED: D5 1/2NS 1000ml IV ONE (18:25)
[2017-08-19] MEDS ORDERED: Tubing IV Secondary IV ONE ×2 (18:25)
[2017-08-19] MEDS ORDERED: NS Irrig 1000ml ONE (18:25)
[2017-08-19] MEDS ORDERED: NS 275ml ONE (18:25)
--- NOTE | 2017-08-19 22:36 | Discharge Summary ---
Discharge Summary Hospital Course Date of Admission Aug 16, 2017 at 22:18 Date of Discharge Aug 19, 2017 at 18:26 Admitting Diagnosis ENCEPHALOPATHY,ALCOHOL INTOXICATION Reason for Hospitalization: acute encephalopathy, alcohol intoxication HPI 27y/o female with pmh of alcohol abuse with dependence who presented with acute alcohol intoxication. Pt was found w/ twin sister on the floor of the hotel room. Pt was found next to her sister on the ground. Paramedics reported alcohol bottles around the room. No drugs found. On arrival to ED, pt is nonverbal and unresponsive to verbal stimuli. She did respond minimally to physical stimuli. Hospital Course Pt was admitted and monitored closely. She was given IVFs, banana bag. Mental status slowly improved and returned to baseline. Pt was seen by social work and given resources for substance abuse rehab. Pt wished to be discharged and go to a sober living by next week. On discharge, pt was hemodynamically stable, tolerating PO and ambulating w/o assistance. Discharge physical exam General: alert, cooperative, no distress, appears stated age Head: normocephalic, without obvious abnormality, atraumatic Eyes: conjunctivae/corneas clear. PERRL, EOM's intact Throat: lips, mucosa, and tongue normal. MMM Neck: supple, symmetrical, trachea midline, and no JVD Lungs: clear to auscultation bilaterally Heart: regular rate and rhythm, S1, S2 normal, no murmur, click, rub or gallop Abdomen: soft, non-tender, non-distended, bowel sounds normal; no masses or organomegaly Extremities: extremities normal, atraumatic, no cyanosis or edema Pulses: 2+ and symmetric Skin: skin color, texture, turgor normal; no rashes or lesions Neurologic: grossly normal, no focal deficits Discharge Medications Continued Medications: Folic Acid* (Folic Acid*) 1 Mg Tablet 1 MG ORAL DAILY, #30 TAB Lorazepam* (Lorazepam*) 1 Mg Tablet 1 MG ORAL Q12HR for For Anxiety, TAB Multivitamins* (Multivitamins*) 1 Each Tablet 1 TAB ORAL DAILY, #30 TAB 0 Refills No Known Medications* (NKM - No Known Medications*) . 0 ., 0 Refills Thiamine Hcl* (Vitamin B-1*) 100 Mg Tablet 100 MG ORAL DAILY, #30 TAB 0 Refills Discontinued Medications: Chlordiazepoxide Hcl* (Librium*) 10 Mg Capsule 25 MG ORAL DAILY, #5 CAP 0 Refills Discharge Condition Upon Discharge: stable Discharge Disposition Patient was discharged to [facility] Discharge Diagnoses: (1) Acute encephalopathy (2) Acute alcoholic intoxication (3) Alcohol dependence (4) Alcohol use disorder (5) Alcohol abuse John Seaman M.D. Aug 19, 2017 22:36
== END 2017-08-19 18:26 | disposition home or self-care (01) | DRG 896 ==
LOC: EDBD 18:17 → EMR 18:50 → 3E 22:18 → EDBEDREQ 08-17 00:17
DX: F10.229 Alcohol dependence with intoxication, unspecified (principal); G93.40 Encephalopathy, unspecified; F10.239 Alcohol dependence with withdrawal, unspecified; Y90.8 Blood alcohol level of 240 mg/100 ml or more
CPT/HCPCS: 36415; 80048; 80053; 80307; 80329; 81025; 83735; 84100; 85025; 99285; J2405

== ENCOUNTER 2017-12-13 09:39 | Inpatient (IN) | payer OTHER ==
[~2017-12-13] VITALS: Ht 167.6 cm; Wt 48.5 kg
[~2017-12-13 09:39] MED LIST changes: +LORAZEPAM1 MG ORAL; +UNOBMED
[2017-12-13 10:00] VITALS: BP 101/66
--- NOTE | 2017-12-13 11:04 | Diagnostic Imaging Report ---
Indication: Altered mental status Technique: Contiguous 5 mm thick transaxial imaging of the head obtained in a Siemens Sensation [address] scanner. Soft tissue and bone windows generated. Automatic Exposure Control was utilized. Total Dose length Product (DLP): 1322.[address] Dose Index Volume (CTDIvol): 70.38 mGy Comparison: none Findings: There is a tiny focus of apparent calcification in the right basal ganglia region. Calcifications in around the basal ganglia are exceedingly common and usually of no clinical consequence. Please correlate clinically. Would consider cysticercosis. The size and configuration of the cortical sulci, basal cisterns, and ventricles are within normal limits for age. There is no mass effect, midline shift, or edema identified. There is no evidence of acute hemorrhage or abnormal intra-axial or extra-axial fluid collections. The bones and soft tissues are unremarkable. Impression: No mass effect, edema or acute bleed. Small focus of calcification in the right basal ganglia region, nonspecific in nature. Discussion as above The CT scanner at [facility] is accredited by the [employer] and the scans are performed using dose optimization techniques as appropriate to a performed exam including Automatic Exposure control.
--- NOTE | 2017-12-13 11:08 | Diagnostic Imaging Report ---
Indication: Dyspnea Comparison: None A single view chest radiograph was obtained. Findings: Cardiomediastinal appearance is within normal limits for age. Pulmonary vascularity is appropriate. The diaphragmatic contour is smooth and costophrenic angles are sharp. No pleural effusions are identified. The bones are unremarkable. Impression: No acute findings
[2017-12-13 11:25] LABS: BASOPHILS % (AUTO) 2.2 % (0.0-2.0); EOSINOPHILS % (AUTO) 1.1 % (0.0-3.0); HEMOGLOBIN 13.7 G/DL (12.0-16.0); LYMPHOCYTES % (AUTO) 53.6 % (20.0-45.0); MEAN CORPUSCULAR VOLUME 93 FL (80-99); MONOCYTES % (AUTO) 6.1 % (1.0-10.0); NEUTROPHILS % (AUTO) 36.9 % (45.0-75.0); PLATELET COUNT 418 K/UL (150-450); RED BLOOD COUNT 4.52 M/UL (4.20-5.40); RED CELL DISTRIBUTION WIDTH 14.7 % (11.6-14.8); WHITE BLOOD COUNT 4.8 K/UL (4.8-10.8)
[2017-12-13 11:30] VITALS: BP 93/58
[2017-12-13 11:41] LABS: ANION GAP 13 mmol/L (5-15); BLOOD UREA NITROGEN 15 mg/dL (7-18); CALCIUM 7.7 MG/DL (8.5-10.1); CARBON DIOXIDE 24 MMOL/L (21-32); CHLORIDE 108 MMOL/L (98-107); CREATININE 0.8 MG/DL (0.55-1.30); POTASSIUM 4.2 MMOL/L (3.5-5.1); SODIUM 145 MMOL/L (136-145)
--- NOTE | 2017-12-13 11:41 | Emergency Room Report ---
History of Present Illness General Chief Complaint: Altered Level of Consciousness Source: EMS Present Illness HPI Patient is brought in by paramedics as a'Carina Castanon' There is no name provided Patient was found with her sister Paramedics report that the sister was acting aggressively towards the police department Otherwise no further information was obtained from them patient was found altered by unknown person who came to check on the room Patient herself is responsive minimally to physical stimuli however is extremely altered Is not verbal History of present illness is significantly limited Patient maintaining appropriate airway at this time and gag reflex is intact Allergies: Coded Allergies: UNABLE TO ASSESS (Unverified , 12/13/17) Patient History Limited by: medical condition Past Medical History: see triage record Pertinent Family History: unable to obtain Last Menstrual Period: unknown Reviewed Nursing Documentation: PMH: Agreed; PSxH: Agreed Nursing Documentation-PMH Past Medical History Deferred: Pt Cognitively Impaired Past Medical History: Deferred Review of Systems All Other Systems: limited - Other than the ones mentioned in the history of present illness all others are reviewed however they do stay limited due to the patient's mental status Physical Exam Vital Signs Date Time Temp Pulse Resp B/P (MAP) Pulse Ox O2 Delivery O2 Flow Rate FiO2 12/13/17 09:15 71 15 106/68 99 Room Air Sp02 EP Interpretation: reviewed, normal General Appearance: moderate distress - Altered and unresponsive Head: normocephalic, atraumatic Eyes: bilateral eye PERRL ENT: normal pharynx, dry mucus membranes Neck: supple Respiratory: no respiratory distress, no retraction, crackles - In both lower lobes Cardiovascular #1: regular rate, rhythm, no edema Gastrointestinal: soft, no mass Musculoskeletal: other - Patient does not follow commands, is not localizing towards physical stimuli Neurologic: responsive - Minimally to physical stimuli however significantly decreased GCS Skin: normal color, no rash Lymphatic: no adenopathy Procedures Critical Care Time Critical Care Time 40 minutes for multiple re-evaluations Critical presentation Concern regarding possible airway pathology Multiple repeat neurological examinations Not including any procedural time Medical Decision Making Diagnostic Impression: Primary Impression: Altered level of consciousness Additional Impressions: Encephalopathy Overdose ER Course Patient's presentation is concerning multiple differentials including but not limited to cardiac, intracranial, infectious, metabolic disorders considered Patient requires extensive workup including imaging of the brain and blood test Patient CT imaging is negative for acute pathology Blood work reveals significantly elevated alcohol level along with benzodiazepine positive Patient remains difficult to arouse however still maintaining appropriate airway has not required airway intubation however given the extended observation status patient's lack of significant improvement Patient requires further inpatient care Labs Test 12/13/17 11:00 White Blood Count 4.8 K/UL (4.8-10.8) Red Blood Count 4.52 M/UL (4.20-5.40) Hemoglobin 13.7 G/DL (12.0-16.0) Hematocrit 42.0 % (37.0-47.0) Mean Corpuscular Volume 93 FL (80-99) Mean Corpuscular Hemoglobin 30.2 PG (27.0-31.0) Mean Corpuscular Hemoglobin Concent 32.5 G/DL (32.0-36.0) Red Cell Distribution Width 14.7 % (11.6-14.8) Platelet Count 418 K/UL (150-450) Mean Platelet Volume 6.4 FL (6.5-10.1) Neutrophils (%) (Auto) 36.9 % (45.0-75.0) Lymphocytes (%) (Auto) 53.6 % (20.0-45.0) Monocytes (%) (Auto) 6.1 % (1.0-10.0) Eosinophils (%) (Auto) 1.1 % (0.0-3.0) Basophils (%) (Auto) 2.2 % (0.0-2.0) Urine HCG, Qualitative Negative (NEGATIVE) Sodium Level 145 MMOL/L (136-145) Potassium Level 4.2 MMOL/L (3.5-5.1) Chloride Level 108 MMOL/L (98-107) Carbon Dioxide Level 24 MMOL/L (21-32) Anion Gap 13 mmol/L (5-15) Blood Urea Nitrogen 15 mg/dL (7-18) Creatinine 0.8 MG/DL (0.55-1.30) Estimat Glomerular Filtration Rate > 60 mL/min (>60) Glucose Level 93 MG/DL (74-106) Calcium Level 7.7 MG/DL (8.5-10.1) Total Bilirubin 0.2 MG/DL (0.2-1.0) Aspartate Amino Transf (AST/SGOT) 28 U/L (15-37) Alanine Aminotransferase (ALT/SGPT) 23 U/L (12-78) Alkaline Phosphatase 51 U/L (46-116) Total Protein 7.9 G/DL (6.4-8.2) Albumin 4.1 G/DL (3.4-5.0) Globulin 3.8 g/dL Albumin/Globulin Ratio 1.1 (1.0-2.7) Salicylates Level 1.2 ug/mL (2.8-20) Urine Opiates Screen Negative (NEGATIVE) Acetaminophen Level < 2 MCG/ML (10-30) Urine Barbiturates Screen Negative (NEGATIVE) Phencyclidine (PCP) Screen Negative (NEGATIVE) Urine Amphetamines Screen Negative (NEGATIVE) Urine Benzodiazepines Screen Positive (NEGATIVE) Urine Cocaine Screen Negative (NEGATIVE) Urine Marijuana (THC) Screen Negative (NEGATIVE) Serum Alcohol 485 mg/dL EKG Diagnostic Results Rate: normal Rhythm: NSR ST Segments: no acute changes Rhythm Strip Diag. Results EP Interpretation: yes Rate: 69 Rhythm: NSR, no PVC's, no ectopy Chest X-Ray Diagnostic Results Chest X-Ray Diagnostic Results : Chest X-Ray Ordered: Yes # of Views/Limited/Complete: 1 View Indication: Chest Pain EP Interpretation: Yes Interpretation: no consolidation, no effusion, no pneumothorax, no acute cardiopulmonary disease Impression: No acute disease Electronically Signed by: Jackie Kearns DO CT/MRI/US Diagnostic Results CT/MRI/US Diagnostic Results : Impression CT head: No acute disease Last Vital Signs Date Time Temp Pulse Resp B/P (MAP) Pulse Ox O2 Delivery O2 Flow Rate FiO2 12/13/17 11:30 77 15 93/58 99 Room Air Status: unchanged Disposition: ADMITTED INPATIENT Condition: Critical Jackie Kearns DO December 13, 2017 11:41
[2017-12-13 11:47] LABS: ALANINE AMINOTRANSFERASE 23 U/L (12-78); ALBUMIN 4.1 G/DL (3.4-5.0); ALBUMIN/GLOBULIN RATIO 1.1 (1.0-2.7); ALKALINE PHOSPHATASE 51 U/L (46-116); ASPARTATE AMINO TRANSFERASE 28 U/L (15-37); BILIRUBIN,TOTAL 0.2 MG/DL (0.2-1.0)
[2017-12-13] MEDS ORDERED: Naloxone 1mg/ml 2ml IVP ONE (12:30)
[2017-12-13 12:45] VITALS: BP 92/56
[2017-12-13 13:59] VITALS: BP 95/67
[2017-12-13 16:00] VITALS: BP 113/66
[2017-12-13 20:00] VITALS: BP 107/72
--- NOTE | 2017-12-13 20:17 | Pulmonolgy Critical Care Note ---
Critical Care - Asmt/Plan Problems: (1) Drug overdose (2) Alcohol abuse (3) Alcohol use disorder (4) Alcohol dependence (5) Acute encephalopathy (6) Altered mental status Respiratory: monitor respiratory rate Cardiac: continue to monitor HR/BP Renal: keep IV fluid Neurologic: PRN Ativan, other - F/U final CT Affect: PRN ativan - monitor for w/draw, other - MVI/thiamine/folate, sitter, psych eval Prophylaxis: Protonix, SCDs Disposition: keep in ICU - [facility] Time Spent (Minutes): 40 Notes Reviewed: puncher and fastener, other - ER MD Discussed with: nurses Critical Care - Objective Last 24 Hour Vital Signs Date Time Temp Pulse Resp B/P (MAP) Pulse Ox O2 Delivery O2 Flow Rate FiO2 12/13/17 16:00 60 12/13/17 16:00 97.8 74 113/66 97 Room Air 97.8 12/13/17 14:50 98.9 74 17 95/67 97 Room Air 98.9 12/13/17 13:59 98.9 74 17 95/67 97 Room Air 98.9 12/13/17 12:45 98.1 74 17 92/56 97 Room Air 98.1 12/13/17 11:30 77 15 93/58 99 Room Air 12/13/17 10:00 98.1 65 18 101/66 97 Room Air 98.1 12/13/17 09:15 71 15 106/68 99 Room Air Status: awake - AAOx2 Condition: improving HEENT: atraumatic Lungs: clear Heart: HR/BP stable Abdomen: soft, non-tender, active bowel sounds Extremities: no C/C/E Critical Care - Subjective ROS Limited/Unobtainable: Yes ICU Day: 1 ([facility]) Intubation Day: N/A Interval Events: 27 F h/o EtOH abuse BIB EMS with AMS and aggressive behavior, + EtOH and Utox + BZD's. Multiple admits @ [facility] for same Pt states she was drinking and having Valium to celebrate her recent engagement She denies SI/HI/AVH, she is very tangential No F/C/CP/SOB/N/V/D/C/abdominal pain or urinary complaints Condition: improving IV Access: peripheral EKG Rhythm: Sinus Rhythm Fluids: NS @ 150 Subjective: As above CXR: NAD Labs: Laboratory Tests Test 12/13/17 11:00 White Blood Count 4.8 K/UL (4.8-10.8) Red Blood Count 4.52 M/UL (4.20-5.40) Hemoglobin 13.7 G/DL (12.0-16.0) Hematocrit 42.0 % (37.0-47.0) Mean Corpuscular Volume 93 FL (80-99) Mean Corpuscular Hemoglobin 30.2 PG (27.0-31.0) Mean Corpuscular Hemoglobin Concent 32.5 G/DL (32.0-36.0) Red Cell Distribution Width 14.7 % (11.6-14.8) Platelet Count 418 K/UL (150-450) Mean Platelet Volume 6.4 FL (6.5-10.1) L Neutrophils (%) (Auto) 36.9 % (45.0-75.0) L Lymphocytes (%) (Auto) 53.6 % (20.0-45.0) H Monocytes (%) (Auto) 6.1 % (1.0-10.0) Eosinophils (%) (Auto) 1.1 % (0.0-3.0) Basophils (%) (Auto) 2.2 % (0.0-2.0) H Urine HCG, Qualitative Negative (NEGATIVE) Sodium Level 145 MMOL/L (136-145) Potassium Level 4.2 MMOL/L (3.5-5.1) Chloride Level 108 MMOL/L (98-107) H Carbon Dioxide Level 24 MMOL/L (21-32) Anion Gap 13 mmol/L (5-15) Blood Urea Nitrogen 15 mg/dL (7-18) Creatinine 0.8 MG/DL (0.55-1.30) Estimat Glomerular Filtration Rate > 60 mL/min (>60) Glucose Level 93 MG/DL (74-106) Calcium Level 7.7 MG/DL (8.5-10.1) L Total Bilirubin 0.2 MG/DL (0.2-1.0) Aspartate Amino Transf (AST/SGOT) 28 U/L (15-37) Alanine Aminotransferase (ALT/SGPT) 23 U/L (12-78) Alkaline Phosphatase 51 U/L (46-116) Total Protein 7.9 G/DL (6.4-8.2) Albumin 4.1 G/DL (3.4-5.0) Globulin 3.8 g/dL Albumin/Globulin Ratio 1.1 (1.0-2.7) Salicylates Level 1.2 ug/mL (2.8-20) L Urine Opiates Screen Negative (NEGATIVE) Acetaminophen Level < 2 MCG/ML (10-30) L Urine Barbiturates Screen Negative (NEGATIVE) Phencyclidine (PCP) Screen Negative (NEGATIVE) Urine Amphetamines Screen Negative (NEGATIVE) Urine Benzodiazepines Screen Positive (NEGATIVE) H Urine Cocaine Screen Negative (NEGATIVE) Urine Marijuana (THC) Screen Negative (NEGATIVE) Serum Alcohol 485 mg/dL ROMINA ROSE M.D. December 13, 2017 20:17
[2017-12-13] MEDS: LORazepam Inj 2mg/ml 1ml IV PRN (23:39)
[2017-12-14] VITALS: BP 103/72
[2017-12-14 04:00] VITALS: BP 107/54
[2017-12-14 08:00] VITALS: BP 146/68
[2017-12-14] MEDS ORDERED: Thiamine 100mg tab ORAL SCH (09:00)
[2017-12-14] MEDS: LORazepam Inj 2mg/ml 1ml IV PRN ×2 (09:57→16:57)
--- NOTE | 2017-12-14 10:37 | Pulmonolgy Critical Care Note ---
Critical Care - Asmt/Plan Problems: (1) Drug overdose (2) Alcohol abuse (3) Alcohol use disorder (4) Alcohol dependence (5) Acute encephalopathy (6) Altered mental status Respiratory: monitor respiratory rate Cardiac: continue to monitor HR/BP Renal: keep IV fluid, check electrolytes Neurologic: other - small Ca R BG on CT, can be F/U as O/P, unlikely clinical significance, pt has had prior CT's @ [facility] Affect: PRN ativan, other - sitter, psych eval, MVI/thiamine/Folate, IVF Prophylaxis: SCDs Disposition: transfer to [facility] Notes Reviewed: rolled ham lacer Discussed with: nurses, consultants Critical Care - Objective Last 24 Hour Vital Signs Date Time Temp Pulse Resp B/P (MAP) Pulse Ox O2 Delivery O2 Flow Rate FiO2 12/14/17 08:00 98.0 63 21 146/68 98 Room Air 98.0 12/14/17 04:41 98 12/14/17 04:00 98.1 95 20 107/54 96 Room Air 98.1 12/14/17 00:06 84 12/14/17 00:00 98.2 101 20 103/72 96 Room Air 98.2 12/13/17 20:00 97.9 103 20 107/72 97 Room Air 97.9 12/13/17 19:27 73 12/13/17 16:00 60 12/13/17 16:00 97.8 74 113/66 97 Room Air 97.8 12/13/17 14:50 98.9 74 17 95/67 97 Room Air 98.9 12/13/17 13:59 98.9 74 17 95/67 97 Room Air 98.9 12/13/17 12:45 98.1 74 17 92/56 97 Room Air 98.1 12/13/17 11:30 77 15 93/58 99 Room Air Status: awake, other - no distress, minimally tremulous Condition: improving HEENT: atraumatic, normocephalic Lungs: clear Heart: HR/BP stable Abdomen: soft, non-tender, active bowel sounds Extremities: no C/C/E Critical Care - Subjective ROS Limited/Unobtainable: Yes ICU Day: RENZO D 2 Condition: improving IV Access: peripheral EKG Rhythm: Sinus Rhythm I&O: Intake and Output 12/13/17 12/14/17 19:00 07:00 Intake Total 540 ml 965 ml Output Total 500 ml 400 ml Balance 40 ml 565 ml Intake Oral 240 ml 300 ml IV Total 300 ml 665 ml Output Urine Total 500 ml 400 ml # Voids 3 3 Subjective: As above Labs: Laboratory Tests Test 12/13/17 11:00 White Blood Count 4.8 K/UL (4.8-10.8) Red Blood Count 4.52 M/UL (4.20-5.40) Hemoglobin 13.7 G/DL (12.0-16.0) Hematocrit 42.0 % (37.0-47.0) Mean Corpuscular Volume 93 FL (80-99) Mean Corpuscular Hemoglobin 30.2 PG (27.0-31.0) Mean Corpuscular Hemoglobin Concent 32.5 G/DL (32.0-36.0) Red Cell Distribution Width 14.7 % (11.6-14.8) Platelet Count 418 K/UL (150-450) Mean Platelet Volume 6.4 FL (6.5-10.1) L Neutrophils (%) (Auto) 36.9 % (45.0-75.0) L Lymphocytes (%) (Auto) 53.6 % (20.0-45.0) H Monocytes (%) (Auto) 6.1 % (1.0-10.0) Eosinophils (%) (Auto) 1.1 % (0.0-3.0) Basophils (%) (Auto) 2.2 % (0.0-2.0) H Urine HCG, Qualitative Negative (NEGATIVE) Sodium Level 145 MMOL/L (136-145) Potassium Level 4.2 MMOL/L (3.5-5.1) Chloride Level 108 MMOL/L (98-107) H Carbon Dioxide Level 24 MMOL/L (21-32) Anion Gap 13 mmol/L (5-15) Blood Urea Nitrogen 15 mg/dL (7-18) Creatinine 0.8 MG/DL (0.55-1.30) Estimat Glomerular Filtration Rate > 60 mL/min (>60) Glucose Level 93 MG/DL (74-106) Calcium Level 7.7 MG/DL (8.5-10.1) L Total Bilirubin 0.2 MG/DL (0.2-1.0) Aspartate Amino Transf (AST/SGOT) 28 U/L (15-37) Alanine Aminotransferase (ALT/SGPT) 23 U/L (12-78) Alkaline Phosphatase 51 U/L (46-116) Total Protein 7.9 G/DL (6.4-8.2) Albumin 4.1 G/DL (3.4-5.0) Globulin 3.8 g/dL Albumin/Globulin Ratio 1.1 (1.0-2.7) Salicylates Level 1.2 ug/mL (2.8-20) L Urine Opiates Screen Negative (NEGATIVE) Acetaminophen Level < 2 MCG/ML (10-30) L Urine Barbiturates Screen Negative (NEGATIVE) Phencyclidine (PCP) Screen Negative (NEGATIVE) Urine Amphetamines Screen Negative (NEGATIVE) Urine Benzodiazepines Screen Positive (NEGATIVE) H Urine Cocaine Screen Negative (NEGATIVE) Urine Marijuana (THC) Screen Negative (NEGATIVE) Serum Alcohol 485 mg/dL ROMINA ROSE M.D. December 14, 2017 10:37
--- NOTE | 2017-12-14 11:20 | Consultation ---
History of Present Illness General Date patient seen: December 14, 2017 Chief Complaint: Altered Level of Consciousness Present Illness HPI 27yo female with hx of alcohol and drug use. the pt has been acting bizarre last night however today the pt was alert and was able to provide hx. the pt has good insight and denied SI/Hi/ the pt is not endorsing psychotic sxs. and not confused. the pt was assessed around 11;30 am Allergies: Coded Allergies: No Known Allergies (Unverified , 08/05/16) Per Patient NKA Medication History Scheduled Folic Acid* (Folic Acid*), 1 MG ORAL DAILY, (Reported) Lorazepam* (Lorazepam*), 1 MG ORAL Q12HR, (Reported) Multivitamins* (Multivitamins*), 1 TAB ORAL DAILY, (Reported) No Known Medications* (NKM - No Known Medications*), 0 ., (Reported) Thiamine Hcl* (Vitamin B-1*), 100 MG ORAL DAILY, (Reported) Miscellaneous Medications Unable to Obtain Medications (Unable To Obtain Meds), (Reported) Patient History Limited by: medical condition History Provided By: Patient, Medical Record, PMD Healthcare decision maker Resuscitation status Full Code Advanced Directive on File Past Medical/Surgical History Past Medical/Surgical History: (1) Hypomagnesemia (2) Alcoholic liver disease (3) ETOH abuse (4) Metabolic acidemia (5) Acute alcoholic intoxication (6) Alcohol withdrawal (7) Alcohol dependence (8) Alcohol abuse (9) Drug overdose (10) Altered mental status (11) Acute encephalopathy (12) Alcohol use disorder Review of Systems Psychiatric: Reports: prior hx, emotional problems Physical Exam General Appearance: no apparent distress, alert Neurologic: oriented x 3, responsive, depressed affect Last 24 Hour Vital Signs Date Time Temp Pulse Resp B/P (MAP) Pulse Ox O2 Delivery O2 Flow Rate FiO2 12/14/17 08:00 98.0 63 21 146/68 98 Room Air 98.0 12/14/17 07:58 83 12/14/17 04:41 98 12/14/17 04:00 98.1 95 20 107/54 96 Room Air 98.1 12/14/17 00:06 84 12/14/17 00:00 98.2 101 20 103/72 96 Room Air 98.2 12/13/17 20:00 97.9 103 20 107/72 97 Room Air 97.9 12/13/17 19:27 73 12/13/17 16:00 60 12/13/17 16:00 97.8 74 113/66 97 Room Air 97.8 12/13/17 14:50 98.9 74 17 95/67 97 Room Air 98.9 12/13/17 13:59 98.9 74 17 95/67 97 Room Air 98.9 12/13/17 12:45 98.1 74 17 92/56 97 Room Air 98.1 12/13/17 11:30 77 15 93/58 99 Room Air Intake and Output 12/13/17 12/14/17 19:00 07:00 Intake Total 540 ml 965 ml Output Total 500 ml 400 ml Balance 40 ml 565 ml Intake Oral 240 ml 300 ml IV Total 300 ml 665 ml Output Urine Total 500 ml 400 ml # Voids 3 3 Height (Feet): 5 Height (Inches): 6.00 Weight (Pounds): 107 Medications Current Medications Medications (Trade) Dose Ordered Sig/Sp Route PRN Reason Start Time Stop Time Status Last Admin Dose Admin Folic Acid (Folate) 1 mg DAILY ORAL 12/14/17 09:00 01/13/18 08:59 12/14/17 09:14 Lorazepam (Ativan 2mg/ml 1ml) 1 mg Q4H PRN IV Agitation 12/13/17 16:00 12/20/17 15:59 12/14/17 09:57 Multivitamins (Multivitamins) 1 tab DAILY ORAL 12/14/17 09:00 01/13/18 08:59 12/14/17 09:13 Sodium Chloride 1,000 ml @ 150 mls/hr Q6H40M IV 12/13/17 16:00 01/12/18 15:59 12/13/17 22:34 Thiamine HCl (Vitamin B1) 100 mg DAILY ORAL 12/14/17 09:00 01/13/18 08:59 12/14/17 09:13 Assessment/Plan Assessment/Plan the pt needs substance use tx the pt is not at imminent dts/dto dc sitter ordered thiamine folate and sravanis Esha Mckay M.D. December 14, 2017 11:20
[2017-12-14 12:00] VITALS: BP 111/78
[2017-12-14 16:00] VITALS: BP 118/80
--- NOTE | 2017-12-14 17:18 | History and Physical ---
History of Present Illness General Date patient seen: December 14, 2017 Time patient seen: 14:00 Reason for Hospitalization: Altered Level of Consciousness Present Illness HPI This is a 27 y/o with a history of alcohol abuse that presented to the ED last night for altered level of consciousness. Patient is well known to us and frequently returns for acute alcohol intoxication. Patient again presents for similar symptoms. Patient was brought in accompanied by her sister and was altered in the ED. CT head was negative and CXR was negative. Ethanol level was 485. Patient was given IVF, banana bag, and ativan and was further admitted. Currently, patient denies nausea, vomiting, cp, sob, abdominal pain, tremors. Patient also states that she does not want to go to an acute rehab program. Allergies: Coded Allergies: No Known Allergies (Unverified , 08/05/16) Per Patient NKA Medication History Scheduled Folic Acid* (Folic Acid*), 1 MG ORAL DAILY, (Reported) Lorazepam* (Lorazepam*), 1 MG ORAL Q12HR, (Reported) Multivitamins* (Multivitamins*), 1 TAB ORAL DAILY, (Reported) No Known Medications* (NKM - No Known Medications*), 0 ., (Reported) Thiamine Hcl* (Vitamin B-1*), 100 MG ORAL DAILY, (Reported) Miscellaneous Medications Unable to Obtain Medications (Unable To Obtain Meds), (Reported) Patient History History Provided By: Patient Healthcare decision maker Resuscitation status Full Code Advanced Directive on File Family History Family History: Patient reports no known family medical history. Review of Systems All Other Systems: negative except mentioned in HPI Physical Exam General Appearance: no apparent distress, alert HEENT: normocephalic, atraumatic Neck: non-tender, normal alignment, supple Respiratory/Chest: chest wall non-tender, lungs clear, normal breath sounds Cardiovascular/Chest: normal peripheral pulses, normal rate, regular rhythm Abdomen: normal bowel sounds, non tender, soft Extremities: normal range of motion, non-tender Skin Exam: normal pigmentation, warm/dry Neurologic: registered dietitian II-XII grossly normal, no motor/sensory deficits, alert, oriented x 3, other - tremor Last 24 Hour Vital Signs Date Time Temp Pulse Resp B/P (MAP) Pulse Ox O2 Delivery O2 Flow Rate FiO2 12/14/17 16:00 98.1 83 21 118/80 94 Room Air 98.1 12/14/17 12:00 98.6 100 21 111/78 98 Room Air 98.6 12/14/17 11:51 81 12/14/17 08:00 98.0 63 21 146/68 98 Room Air 98.0 12/14/17 07:58 83 12/14/17 04:41 98 12/14/17 04:00 98.1 95 20 107/54 96 Room Air 98.1 12/14/17 00:06 84 12/14/17 00:00 98.2 101 20 103/72 96 Room Air 98.2 12/13/17 20:00 97.9 103 20 107/72 97 Room Air 97.9 12/13/17 19:27 73 Intake and Output 12/13/17 12/14/17 19:00 07:00 Intake Total 540 ml 965 ml Output Total 500 ml 400 ml Balance 40 ml 565 ml Intake Oral 240 ml 300 ml IV Total 300 ml 665 ml Output Urine Total 500 ml 400 ml # Voids 3 3 Height (Feet): 5 Height (Inches): 6.00 Weight (Pounds): 107 Medications Current Medications Medications (Trade) Dose Ordered Sig/Sp Route PRN Reason Start Time Stop Time Status Last Admin Dose Admin Folic Acid (Folate) 1 mg DAILY ORAL 12/14/17 09:00 01/13/18 08:59 12/14/17 09:14 Lorazepam (Ativan 2mg/ml 1ml) 1 mg Q4H PRN IV Agitation 12/13/17 16:00 12/20/17 15:59 12/14/17 16:57 Multivitamins (Multivitamins) 1 tab DAILY ORAL 12/14/17 09:00 01/13/18 08:59 12/14/17 09:13 Sodium Chloride 1,000 ml @ 150 mls/hr Q6H40M IV 12/13/17 16:00 01/12/18 15:59 12/13/17 22:34 Thiamine HCl (Vitamin B1) 100 mg DAILY ORAL 12/14/17 09:00 01/13/18 08:59 12/14/17 09:13 Assessment/Plan Problem List: (1) Alcohol abuse ICD Codes: F10.10 - Alcohol abuse, uncomplicated SNOMED: 17099260, 90525591 (2) Drug overdose ICD Codes: T50.901A - Poisoning by unspecified drugs, medicaments and biological substances, accidental (unintentional), initial encounter SNOMED: 81619019 (3) Acute encephalopathy ICD Codes: G93.40 - Encephalopathy, unspecified SNOMED: 7456175 Status: stable, progressing Assessment/Plan - Admit to inpatient - Psychiatry consulted, appreciate rec's - Banana bag daily - IVF - ativan prn - replete electrolytes prn - SW consulted. Family requesting for patient to be transferred to acute rehab program but patient refusing. Patient cleared from psych, no DTS or DTO. DVT Prophylaxis: SCD Code Status: Full Hospital Classification Declaration: Based on this initial evaluation, and depending on the patient's clinical course, I anticipate that this patient will require hospitalization for 1-2 days for alcohol withdrawal and close respiratory/hemodynamic monitoring. Disposition: Once the patient is stable to leave the hospital, I anticipate the patient will likely be discharged to the following environment: home vs. acute rehab I spent 73 minutes on this patient's case, and 40 minutes were dedicated to counseling and/or care coordination. Discussed with patient/family, nursing staff, SW/CM, and psychiatry regarding clinical status, treatment course, and disposition planning. Time of note may not reflect time of encounter. Felicita Ohara NP December 14, 2017 17:18
--- NOTE | 2017-12-14 17:35 | Discharge Instructions ---
Discharge Instructions Discharge Instructions Follow up with: F/u with outpatient psychiatrist. For Congestive Heart Failure Reminder Report to your physician any weight gain of 5 pounds or more in one week. Felicita Ohara NP December 14, 2017 17:35
[2017-12-14 20:00] VITALS: BP 132/76
--- NOTE | 2017-12-15 15:18 | Discharge Summary ---
Discharge Summary Hospital Course Date of Admission December 13, 2017 at 12:51 Date of Discharge December 14, 2017 at 22:04 Admitting Diagnosis multidrug overdose JORGE Herrera is a 27 year old female who was admitted on December 13, 2017 at 12:51 for Multidrug Overdose This is a 27 y/o with a history of alcohol abuse that presented to the ED last night for altered level of consciousness. Patient is well known to us and frequently returns for acute alcohol intoxication. Patient again presents for similar symptoms. Patient was brought in accompanied by her sister and was altered in the ED. CT head was negative and CXR was negative. Ethanol level was 485. Patient was given IVF, banana bag, and ativan and was further admitted. Currently, patient denies nausea, vomiting, cp, sob, abdominal pain, tremors. Patient also states that she does not want to go to an acute rehab program. Consultations Psychiatry, Dr. Mckay Procedures None Hospital Course Patient was admitted to step-down unit for continued monitoring. Psychiatry was consulted. Patient was noted to be eating soap while she was still under the influence and acutely altered. The next day, patient's encephalopathy resolved with IVF, banana bag, thiamine, folate, and ativan. Patient was hemodynamically stable and cleared per psychiatry. Patient was therefore medically cleared for transfer to inpatient psychiatric hospital for acute rehab. Discharge Medications Continued Medications: Folic Acid* (Folic Acid*) 1 Mg Tablet 1 MG ORAL DAILY, #30 TAB (This prescription has been renewed) Lorazepam* (Lorazepam*) 1 Mg Tablet 1 MG ORAL Q12HR for For Anxiety, TAB Multivitamins* (Multivitamins*) 1 Each Tablet 1 TAB ORAL DAILY, #30 TAB 0 Refills (This prescription has been renewed) Thiamine Hcl* (Vitamin B-1*) 100 Mg Tablet 100 MG ORAL DAILY, #30 TAB 0 Refills (This prescription has been renewed) Discharge Condition Upon Discharge: improving, stable Discharge Disposition Patient was discharged to Alcohol/Drug Rehab(05) Discharge Diagnoses: (1) Acute encephalopathy (2) Alcohol abuse (3) Acute alcoholic intoxication Discharge Instructions Discharge Instructions Follow up with: F/u with outpatient psychiatrist. Felicita Ohara NP December 15, 2017 15:18
--- NOTE | 2017-12-15 17:14 | Cardiology Report ---
APPROVED REPORT EKG Measurement Heart [id number] Normal sinus rhythm Low voltage QRS Borderline ECG
== END 2017-12-14 22:04 | DRG 917 ==
LOC: EDBD 09:39 → EMR 11:56 → EDBD 11:56 → MERGE 11:56 → 2W 12:51 → EDBEDREQ 13:33
DX: T50.901A Poisoning by unspecified drugs, medicaments and biological substances, accidental (unintentional), initial encounter (principal); G92 Toxic encephalopathy; F10.229 Alcohol dependence with intoxication, unspecified
CPT/HCPCS: 36415; 70450; 71045; 80053; 80307; 80329; 81025; 85025; 93005; 99291; J2310

== ENCOUNTER 2018-02-01 00:01 | Emergency (ER) | payer OTHER ==
[2018-02-01] VITALS (8 sets, daily range): BP systolic 83–106; BP diastolic 43–64
[~2018-02-01] VITALS: Ht 170.2 cm; Wt 59.0 kg
[2018-02-01] MEDS ORDERED: Thiamine HCl 100 MG in D5W 55 ML IVPB SCH (00:15)
[2018-02-01 01:30] LABS: EOSINOPHILS % (AUTO) 0.4 % (0.0-3.0); HEMATOCRIT 34.9 % (37.0-47.0); HEMOGLOBIN 11.5 G/DL (12.0-16.0); LYMPHOCYTES % (AUTO) 32.6 % (20.0-45.0); MEAN CORPUSCULAR VOLUME 90 FL (80-99); MONOCYTES % (AUTO) 7.4 % (1.0-10.0); NEUTROPHILS % (AUTO) 58.5 % (45.0-75.0); PLATELET COUNT 253 K/UL (150-450); RED BLOOD COUNT 3.88 M/UL (4.20-5.40); WHITE BLOOD COUNT 10.1 K/UL (4.8-10.8)
[2018-02-01 01:32] LABS: APPEARANCE,URINE CLEAR; BILIRUBIN, URINE NEGATIVE (NEGATIVE); COLOR,URINE PALE YELLOW; GLUCOSE, URINE (UA) NEGATIVE (NEGATIVE); KETONES,URINE NEGATIVE (NEGATIVE); LEUKOCYTE ESTERASE ,URINE NEGATIVE (NEGATIVE); NITRITE,URINE NEGATIVE (NEGATIVE); PH,URINE 5 (4.5-8.0); PROTEIN,URINE NEGATIVE (NEGATIVE); UROBILINOGEN,URINE NORMAL MG/DL (0.0-1.0)
[2018-02-01 01:39] LABS: ANION GAP 10 mmol/L (5-15); BLOOD UREA NITROGEN 11 mg/dL (7-18); CALCIUM 6.9 MG/DL (8.5-10.1); CARBON DIOXIDE 24 MMOL/L (21-32); CHLORIDE 112 MMOL/L (98-107); CREATININE 0.7 MG/DL (0.55-1.30); POTASSIUM 3.7 MMOL/L (3.5-5.1); SODIUM 146 MMOL/L (136-145)
[2018-02-01 01:45] LABS: ALANINE AMINOTRANSFERASE 16 U/L (12-78); ALKALINE PHOSPHATASE 48 U/L (46-116); ASPARTATE AMINO TRANSFERASE 26 U/L (15-37); BILIRUBIN,TOTAL < 0.1 MG/DL (0.2-1.0)
--- NOTE | 2018-02-01 09:13 | Emergency Room Report ---
History of Present Illness General Chief Complaint: Altered Level of Consciousness Source: EMS Present Illness HPI Patient brought from home with ALOC. H/O alcohol abuse in the past. No known trauma. Accucheck normal field. No other current history available. From old records: Has been admitted 3 times for similar presentation. In November discharged to alcohol rehab facility Had psychiatric evaluation in November. Not felt to be danger to self. Allergies: Coded Allergies: No Known Allergies (Unverified , 08/05/16) Per Patient NKA Patient History Limited by: medical condition Past Medical History: see triage record, old chart reviewed Social History: Reports: alcohol use Social History Narrative at rehab facility Last Menstrual Period: unk Reviewed Nursing Documentation: PMH: Agreed; PSxH: Agreed Nursing Documentation-PMH Hx Cardiac Problems: No - ALCOHOL ABUSE Hx Hypertension: No Hx Pacemaker: No Hx Asthma: No Hx COPD: No Hx Diabetes: No Hx Cancer: No Hx Gastrointestinal Problems: No Hx Dialysis: No Hx Neurological Problems: No Hx Cerebrovascular Accident: No Hx Seizures: No Review of Systems All Other Systems: limited Physical Exam Vital Signs Date Time Temp Pulse Resp B/P (MAP) Pulse Ox O2 Delivery O2 Flow Rate FiO2 02/01/18 00:11 98.0 92 16 100/63 95 Room Air 98.1 Sp02 EP Interpretation: reviewed, normal General Appearance: Stupor Head: normocephalic Eyes: bilateral eye PERRL, bilateral eye Scleral Injection ENT: moist mucus membranes - + gag Neck: supple Respiratory: lungs clear, normal breath sounds Cardiovascular #1: regular rate, rhythm Cardiovascular #2: 2+ radial (R) Gastrointestinal: normal inspection, non tender, no mass, non-distended, decreased bowel sounds Musculoskeletal: back normal, normal range of motion Neurologic: motor strength/tone normal, DTRs symmetric, other - lethargic and only responsive to pain with withdrawal Psychiatric: other - stupor Skin: normal inspection, warm/dry Medical Decision Making Diagnostic Impression: Primary Impression: Acute alcoholic intoxication Qualified Codes: F10.929 - Alcohol use, unspecified with intoxication, unspecified ER Course Patient with ALOC and prior h/o alcohol abuse. DDX: alcohol intoxication, electrolyte abnormality, aspiration. No evidence of head trauma and CT not indicated. Treatment with thiamine and IV hydration with observation. Labs with elevated BA and no LFT abnormalities. EKG no injury. CXR without infiltrate. Awake in AM. Still slightly ataxic. Denies SI or HI. Not have sponsor and "hates" AA. Poor insight. Signed out to Dr. Decker. Laboratory Tests Test 02/01/18 01:04 02/01/18 01:20 White Blood Count 10.1 K/UL (4.8-10.8) Red Blood Count 3.88 M/UL (4.20-5.40) L Hemoglobin 11.5 G/DL (12.0-16.0) L Hematocrit 34.9 % (37.0-47.0) L Mean Corpuscular Volume 90 FL (80-99) Mean Corpuscular Hemoglobin 29.6 PG (27.0-31.0) Mean Corpuscular Hemoglobin Concent 32.9 G/DL (32.0-36.0) Red Cell Distribution Width 14.0 % (11.6-14.8) Platelet Count 253 K/UL (150-450) Mean Platelet Volume 6.3 FL (6.5-10.1) L Neutrophils (%) (Auto) 58.5 % (45.0-75.0) Lymphocytes (%) (Auto) 32.6 % (20.0-45.0) Monocytes (%) (Auto) 7.4 % (1.0-10.0) Eosinophils (%) (Auto) 0.4 % (0.0-3.0) Basophils (%) (Auto) 1.0 % (0.0-2.0) Sodium Level 146 MMOL/L (136-145) H Potassium Level 3.7 MMOL/L (3.5-5.1) Chloride Level 112 MMOL/L (98-107) H Carbon Dioxide Level 24 MMOL/L (21-32) Anion Gap 10 mmol/L (5-15) Blood Urea Nitrogen 11 mg/dL (7-18) Creatinine 0.7 MG/DL (0.55-1.30) Estimate Glomerular Filtration Rate > 60 mL/min (>60) Glucose Level 102 MG/DL (74-106) Calcium Level 6.9 MG/DL (8.5-10.1) L Total Bilirubin < 0.1 MG/DL (0.2-1.0) L Aspartate Amino Transferase (AST) 26 U/L (15-37) Alanine Aminotransferase (ALT) 16 U/L (12-78) Alkaline Phosphatase 48 U/L (46-116) Total Protein 5.9 G/DL (6.4-8.2) L Albumin 3.0 G/DL (3.4-5.0) L Globulin 2.9 g/dL Albumin/Globulin Ratio 1.0 (1.0-2.7) Salicylates Level 0.3 ug/mL (2.8-20) L Acetaminophen Level < 2 MCG/ML (10-30) L Serum Alcohol 368 mg/dL Urine Color Pale yellow Urine Appearance Clear Urine pH 5 (4.5-8.0) Urine Specific [place] 1.015 (1.005-1.035) Urine Protein Negative (NEGATIVE) Urine Glucose (UA) Negative (NEGATIVE) Urine Ketones Negative (NEGATIVE) Urine Occult Blood Negative (NEGATIVE) Urine Nitrite Negative (NEGATIVE) Urine Bilirubin Negative (NEGATIVE) Urine Urobilinogen Normal MG/DL (0.0-1.0) Urine Leukocyte Esterase Negative (NEGATIVE) Urine HCG, Qualitative Negative (NEGATIVE) Urine Opiates Screen Negative (NEGATIVE) Urine Barbiturates Screen Positive (NEGATIVE) H Phencyclidine (PCP) Screen Negative (NEGATIVE) Urine Amphetamines Screen Negative (NEGATIVE) Urine Benzodiazepines Screen Negative (NEGATIVE) Urine Cocaine Screen Negative (NEGATIVE) Urine Marijuana (THC) Screen Negative (NEGATIVE) EKG Diagnostic Results Rate: normal Rhythm: NSR ST Segments: no acute changes Rhythm Strip Diag. Results EP Interpretation: yes Rhythm: NSR, no PVC's, no ectopy Chest X-Ray Diagnostic Results Chest X-Ray Diagnostic Results : Chest X-Ray Ordered: Yes # of Views/Limited/Complete: 1 View Indication: Other EP Interpretation: Yes Interpretation: no consolidation, no effusion, no pneumothorax Impression: No acute disease Electronically Signed by: Raheel Nam MD Last Vital Signs Date Time Temp Pulse Resp B/P (MAP) Pulse Ox O2 Delivery O2 Flow Rate FiO2 02/01/18 12:20 98.7 65 16 106/59 98 Room Air 98.7 Status: improved Disposition: HOME, SELF-CARE Condition: Improved Referrals: NOT CHOSEN IPA/,REFERRING (PCP) Raheel Nam M.D. Feb 01, 2018 09:13
--- NOTE | 2018-02-01 11:28 | Diagnostic Imaging Report ---
Indication: Pain Technique: XRAY Chest 1v Comparison: None Findings: Heart size and mediastinal contours are within normal limits. There is no focal consolidation, pneumothorax or pleural effusion. Osseous structures demonstrate no acute abnormality. Impression: No radiographic evidence of acute cardiopulmonary disease.
--- NOTE | 2018-02-01 14:05 | Cardiology Report ---
APPROVED REPORT EKG Measurement Heart [id number] [place] 122P56 [id number] Normal sinus rhythm Low voltage QRS Cannot rule out Anterior infarct, age undetermined Abnormal ECG
== END 2018-02-01 12:20 | disposition home or self-care (01) ==
LOC: EDBD 00:01 → EMR 00:44
DX: F10.129 Alcohol abuse with intoxication, unspecified (principal); Y90.8 Blood alcohol level of 240 mg/100 ml or more; R41.82 Altered mental status, unspecified
CPT/HCPCS: 36415; 71045; 80053; 80307; 81003; 81025; 85025; 93005; 96365; 96366; 99283; G0480; 80329